=== PATIENT | male | born 1930 | race Caucasian/White ===

== ENCOUNTER 2017-08-20 14:34 | Inpatient (IN) | payer MEDICARE, BC ==
[~2017-08-20] VITALS: Ht 170.2 cm; Wt 69.8 kg
[2017-08-20 14:51] VITALS: BP 183/81; PULSE 62; RESP 18; TEMP 97.4; O2SAT 97
[2017-08-20] MEDS ORDERED: CLON0.1T PO (14:59)
[2017-08-20] MEDS ORDERED: CLOP75TA PO (14:59)
[2017-08-20] MEDS ORDERED: TAMS0.4C4 PO (14:59)
[2017-08-20] MEDS ORDERED: ATOR80TA45 PO (14:59)
[2017-08-20] MEDS ORDERED: ASPI-516 CHEW (14:59)
[2017-08-20] MEDS ORDERED: LEVO25TA4 PO (14:59)
[2017-08-20] MEDS ORDERED: RANO500 PO (14:59)
[2017-08-20] MEDS ORDERED: NAPR500T2 PO (14:59)
--- NOTE | 2017-08-20 15:34 | HHI.HP ---
[facility] Service Family Medicine Primary Care Physician Unknown Admission Diagnosis Diagnoses: International Travel<30 Days: No Contact w/Intl Traveler<30days: No Known Affected Area: No Past Family Social History Allergies: Coded Allergies: No Known Allergies (Unverified , 08/20/17) Physical Exam Vital Signs Vital Signs Date Time Temp Pulse Resp B/P (MAP) Pulse Ox O2 Delivery O2 Flow Rate FiO2 08/20/17 14:51 97.4 62 18 183/81 (115) 97 21 08/20/17 14:49 62 18 Physical Exam GENERAL: This is a well-nourished, well-developed patient, in no apparent distress. SKIN: No rashes, ecchymoses or lesions. Cool and dry. HEAD: Atraumatic. Normocephalic. No temporal or scalp tenderness. EYES: Pupils equal round and reactive. Extraocular motions intact. No scleral icterus. No injection or drainage. ENT: Nose without bleeding, purulent drainage or septal hematoma. Throat without erythema, tonsillar hypertrophy or exudate. Uvula midline. Airway patent. NECK: Trachea midline. No JVD or lymphadenopathy. Supple, nontender, no meningeal signs. CARDIOVASCULAR: Regular rate and rhythm without murmurs, gallops, or rubs. RESPIRATORY: Clear to auscultation. Breath sounds equal bilaterally. No wheezes , rales, or rhonchi. GASTROINTESTINAL: Abdomen soft, non-tender, nondistended. No hepato-splenomegaly , or palpable masses. No guarding. MUSCULOSKELETAL: Extremities without clubbing, cyanosis, or edema. No joint tenderness, effusion, or edema noted. No calf tenderness. Negative Homans sign bilaterally. NEUROLOGICAL: Awake and alert. Cranial nerves II through XII intact. Motor and sensory grossly within normal limits. Five out of 5 muscle strength in all muscle groups. Normal speech. Caprini VTE Risk Assessment Caprini Risk Assessment Model Point Value = 1 Point Value = 2 Point Value = 3 Point Value = 5 Age 41-60 Minor surgery BMI > 25 kg/m2 Swollen legs Varicose veins or History of unexplained or recurrent spontaneous Oral contraceptives or hormone replacement Sepsis (< 1 month) Serious lung disease, including pneumonia (< 1 month) Abnormal pulmonary function Acute myocardial infarction Congestive heart failure (< 1 month) History of inflammatory bowel disease Medical patient at bed rest Age 61-74 Arthroscopic surgery Major open surgery (> 45 min) Laparoscopic surgery (> 45 min) Malignancy Confined to bed (> 72 hours) Immobilizing plaster cast Central venous access Age >= 75 History of VTE Family history of VTE Factor V Leiden Prothrombin [id number] Lupus anticoagulant Anticardiolipin antibodies Elevated serum homocysteine Heparin-induced thrombocytopenia Other congenital or acquired thrombophilia Stroke (< 1 month) Elective arthroplasty Hip, pelvis, or leg fracture Acute spinal cord injury (< 1 month) Prophylaxis Regimen Total Risk Factor Score Risk Level Prophylaxis Regimen 0-1 Low Early ambulation 2 Moderate Order ONE of the following: *Sequential Compression Device (SCD) *Heparin 5000 units SQ BID 3-4 Higher Order ONE of the following medications: *Heparin 5000 units SQ TID *Enoxaparin/Lovenox 40 mg SQ daily (WT < 150 kg, CrCl > 30 mL/min) *Enoxaparin/Lovenox 30 mg SQ daily (WT < 150 kg, CrCl > 10-29 mL/min) *Enoxaparin/Lovenox 30 mg SQ BID (WT < 150 kg, CrCl > 30 mL/min) AND/OR *Sequential Compression Device (SCD) 5 or more Highest Order ONE of the following medications: *Heparin 5000 units SQ TID (Preferred with Epidurals) *Enoxaparin/Lovenox 40 mg SQ daily (WT < 150 kg, CrCl > 30 mL/min) *Enoxaparin/Lovenox 30 mg SQ daily (WT < 150 kg, CrCl > 10-29 mL/min) *Enoxaparin/Lovenox 30 mg SQ BID (WT < 150 kg, CrCl > 30 mL/min) AND *Sequential Compression Device (SCD) Fernie Valle MD R1 Aug 20, 2017 15:34
[2017-08-20] MEDS ORDERED: SODIUM CHLOR 0.9% 1000 ML INJ 1,000 ML IV SCH ×2 (16:30→18:36)
[2017-08-20] MEDS ORDERED: TETANUS/DIPHTHERIA TOXOID ADULT 0.5 ML VIAL IM ONE (16:30)
--- NOTE | 2017-08-20 16:37 | PD ---
HPI Chief Complaint: Altered Mental Status Time Seen by Provider: 16:14 Travel History International Travel<30 days: No Contact w/Intl Traveler<30days: No Traveled to known affect area: No History of Present Illness HPI 87-year-old male complains of syncope. Patient states that he has history of recurrent syncope in the past 2 years. Patient was seen at physician in [place] and workup including cardiac workup was negative. Patient states that he usually has hypotension and then passed out completely. Patient was supposed to have a pacemaker placement however that was canceled. Patient states that he had a syncopal episode again about month ago. Patient states that he has dizziness for the past 3 days at home. Patient states that he fell yesterday and injured his right elbow. Patient states that he has laceration to the right elbow after he fell but no pain to right elbow. Patient son states that patient was sitting at the breakfast table this morning and then became unresponsive. Questionable seizure activity this morning. Patient was out for about 30 minutes. Patient regained consciousness and then became unresponsive again this afternoon. EMS was called. Patient's blood pressure was 72/39. IVs were started. Patient was given normal saline solution 300 cc IV bolus. Blood pressure recheck was 105/40. Patient was transported to the ED for evaluation. Patient denies any headache. Patient denies any visual change. Patient denies any chest pain or shortness of breath. Patient denies abdominal pain. Patient denies any nausea vomiting or diarrhea. Patient denies any focal weakness or numbness of extremity. Patient denies any history of seizure , TIA or CVA. Patient denies history of hypothyroidism, hypertension, hyperlipidemia, BPH. PFSH Past Medical History Hx Anticoagulant Therapy: Yes Cardiac Catheterization: Yes Cardiovascular Problems: Yes High Cholesterol: Yes Genitourinary: Yes (BPH ) Hypertension: Yes Thyroid Disease: Yes (hypo ) Social History Alcohol Use: No Tobacco Use: No Substance Use: No Allergies-Medications (Allergen,Severity, Reaction): Coded Allergies: No Known Allergies (Unverified , 08/20/17) Reported Meds & Prescriptions Reported Meds & Active Scripts Active Reported Levothyroxine (Levothyroxine Sodium) 25 Mcg Tab 25 Mcg PO DAILY Atorvastatin (Atorvastatin Calcium) 80 Mg Tab 80 Mg PO HS Aspirin 81 Mg Chew 81 Mg CHEW DAILY Tamsulosin (Tamsulosin HCl) 0.4 Mg Cap 0.4 Mg PO HS Ranexa ER 12 HR (Ranolazine) 500 Mg Tab 500 Mg PO BID Clonidine (Clonidine HCl) 0.1 Mg Tab 0.05 Mg PO HS Clopidogrel (Clopidogrel Bisulfate) 75 Mg Tab 75 Mg PO DAILY Naproxen 500 Mg Tab 500 Mg PO BID Review of Systems General / Constitutional: No: Fever Eyes: No: Visual changes HENT: No: Headaches Cardiovascular: No: Chest Pain or Discomfort Respiratory: No: Shortness of Breath Gastrointestinal: No: Abdominal Pain Genitourinary: No: Dysuria Musculoskeletal: No: Pain Skin: No Rash Neurologic: Positive: Syncope, No: Weakness Psychiatric: No: Depression Endocrine: No: Polydipsia Hematologic/Lymphatic: No: Easy Bruising Physical Exam Narrative GENERAL: Well-nourished, well-developed patient. SKIN: Focused skin assessment warm/dry. HEAD: Normocephalic. EYES: No scleral icterus. No injection or drainage. NECK: Supple, trachea midline. No JVD or lymphadenopathy. CARDIOVASCULAR: Regular rate and rhythm without murmurs, gallops, or rubs. RESPIRATORY: Breath sounds equal bilaterally. No accessory muscle use. GASTROINTESTINAL: Abdomen soft, non-tender, nondistended. MUSCULOSKELETAL: No cyanosis, or edema. Patient has superficial skin evulsion laceration on the posterior aspect of the right elbow. Laceration measures about 5 cm. BACK: Nontender without obvious deformity. No CVA tenderness. Neurologic exam: Patient's awake and alert oriented 3. No obvious focal neurological deficit. Data Data Last Documented VS Vital Signs Date Time Temp Pulse Resp B/P (MAP) Pulse Ox O2 Delivery O2 Flow Rate FiO2 08/20/17 17:39 (126) 96 Room Air 21 08/20/17 17:34 62 18 08/20/17 14:51 97.4 Orders Orders Electrocardiogram (08/20/17 16:22) Complete Blood Count With Diff (08/20/17 16:22) Comprehensive Metabolic Panel (08/20/17 16:22) Prothrombin Time / Inr (Pt) (08/20/17 16:22) Act Partial Throm Time (Ptt) (08/20/17 16:22) Urinalysis - C+S If Indicated (08/20/17 16:22) Thyroid Stimulating Hormone (08/20/17 16:22) Chest, Single Ap (08/20/17 16:22) Ct Brain W/O Iv Contrast(Rout) (08/20/17 16:22) Iv Access Insert/Monitor (08/20/17 16:22) Ecg Monitoring (08/20/17 16:22) Oximetry (08/20/17 16:22) Tetanus/Diphtheria Tox Adult (Tetanus/Di (08/20/17 16:30) Sodium Chlor 0.9% 1000 Ml Inj (Ns 1000 M (08/20/17 16:30) Labs Laboratory Tests Test 08/20/17 16:30 08/20/17 17:30 White Blood Count 6.2 TH/MM3 Red Blood Count 4.05 MIL/MM3 Hemoglobin 12.8 GM/DL Hematocrit 37.7 % Mean Corpuscular Volume 93.2 FL Mean Corpuscular Hemoglobin 31.7 PG Mean Corpuscular Hemoglobin Concent 34.0 % Red Cell Distribution Width 14.5 % Platelet Count 215 TH/MM3 Mean Platelet Volume 7.5 FL Neutrophils (%) (Auto) 78.7 % Lymphocytes (%) (Auto) 13.8 % Monocytes (%) (Auto) 5.8 % Eosinophils (%) (Auto) 0.7 % Basophils (%) (Auto) 1.0 % Neutrophils # (Auto) 4.9 TH/MM3 Lymphocytes # (Auto) 0.9 TH/MM3 Monocytes # (Auto) 0.4 TH/MM3 Eosinophils # (Auto) 0.0 TH/MM3 Basophils # (Auto) 0.1 TH/MM3 CBC Comment DIFF FINAL Differential Comment Prothrombin Time 11.2 SEC Prothromb Time International Ratio 1.1 RATIO Activated Partial Thromboplast Time 22.6 SEC Blood Urea Nitrogen 37 MG/DL Creatinine 1.55 MG/DL Random Glucose 119 MG/DL Total Protein 6.0 GM/DL Albumin 3.7 GM/DL Calcium Level 8.9 MG/DL Alkaline Phosphatase 68 U/L Aspartate Amino Transf (AST/SGOT) 13 U/L Alanine Aminotransferase (ALT/SGPT) 15 U/L Total Bilirubin 0.7 MG/DL Sodium Level 138 MEQ/L Potassium Level 4.5 MEQ/L Chloride Level 104 MEQ/L Carbon Dioxide Level 25.9 MEQ/L Anion Gap 8 MEQ/L Estimat Glomerular Filtration Rate 42 ML/MIN Thyroid Stimulating Hormone 3rd Gen 2.950 uIU/ML Urine Color YELLOW Urine Turbidity CLEAR Urine pH 7.0 Urine Specific [place] 1.014 Urine Protein TRACE mg/dL Urine Glucose (UA) NEG mg/dL Urine Ketones NEG mg/dL Urine Occult Blood NEG Urine Nitrite NEG Urine Bilirubin NEG Urine Urobilinogen 2.0 MG/DL Urine Leukocyte Esterase NEG Urine WBC LESS THAN 1 /hpf Urine Squamous Epithelial Cells <1 /hpf Urine Mucus FEW /lpf Microscopic Urinalysis Comment CULT NOT INDICATED MDM Medical Decision Making Medical Screen Exam Complete: Yes Emergency Medical Condition: Yes Interpretation(s) Last Impressions Head CT 08/20/171621 Signed Impressions: Service Date/Time: Sunday, August 20, 2017 17:13 - CONCLUSION: 1. 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 MRI may be warranted. 2. No midline shift or mass effect. Julian Cisneros MD Chest X-Ray 08/20/171621 Signed Impressions: Service Date/Time: Sunday, August 20, 2017 16:39 - CONCLUSION: No acute cardiopulmonary disease. Andrea Catherine Jr., MD 1805 p.m. CBC WBC 6.2. Hemoglobin 12.8 hematocrit 37.7. 78 neutrophil. BUN 37. Creatinine 1.55. GFR 42. Glucose 119. UA is negative. Differential Diagnosis Differential diagnosis including vasovagal reaction, hypotension, bradycardia, seizure. Narrative Course 87-year-old male with hypotension and syncope and possible seizure. Markel Gambino MD Aug 20, 2017 16:37
--- NOTE | 2017-08-20 17:04 | RADRPT ---
EXAM DATE/TIME: 08/20/2017 16:39 [facility] COMPARISON: No previous studies available for comparison. INDICATIONS : Syncope, short of breath. MEDICAL HISTORY : Hypertension. SURGICAL HISTORY : None. ENCOUNTER: Initial ACUITY: 1 day PAIN SCORE: 0/10 LOCATION: Bilateral chest FINDINGS: 2 portable frontal views of the chest show the heart to be normal in size and shape. Lungs are clear without infiltrate or effusion. Degenerative and scoliotic spine. CONCLUSION: No acute cardiopulmonary disease. Andrea Catherine Jr., MD on August 20, 2017 at 16:49 Board Certified Radiologist. This report was verified electronically.
[2017-08-20 17:08] LABS: INTERNATIONAL NORMALIZED RATIO 1.1 RATIO; PROTHROMBIN TIME - PATIENT 11.2 SEC (9.8-11.6)
[2017-08-20 17:09] LABS: AUTOMATED NEUTROPHIL # 4.9 TH/MM3 (1.8-7.7); BASOPHIL # 0.1 TH/MM3 (0-0.2); EOSINOPHIL % 0.7 % (0.0-4.0); HEMATOCRIT 37.7 % (39.0-51.0); HEMOGLOBIN 12.8 GM/DL (13.0-17.0); LYMPH % 13.8 % (9.0-44.0); LYMPHOCYTE # 0.9 TH/MM3 (1.0-4.8); MEAN CELL VOLUME 93.2 FL (80.0-100.0); MEAN CORPUSCULAR HEMOGLOBIN 31.7 PG (27.0-34.0); MEAN PLATELET VOLUME 7.5 FL (7.0-11.0); MONO % 5.8 % (0.0-8.0); MONOCYTE # 0.4 TH/MM3 (0-0.9); NEUT % 78.7 % (16.0-70.0); PLATELET COUNT 215 TH/MM3 (150-450); RED BLOOD COUNT 4.05 MIL/MM3 (4.50-5.90); RED CELL DISTRIBUTION WIDTH 14.5 % (11.6-17.2); WHITE BLOOD COUNT 6.2 TH/MM3 (4.0-11.0)
[2017-08-20 17:15] LABS: ALBUMIN 3.7 GM/DL (3.4-5.0); ALT (GPT) 15 U/L (12-78); AST (GOT) 13 U/L (15-37); BICARBONATE 25.9 MEQ/L (21.0-32.0); BLOOD UREA NITROGEN 37 MG/DL (7-18); CALCIUM 8.9 MG/DL (8.5-10.1); CHLORIDE 104 MEQ/L (98-107); CREATININE 1.55 MG/DL (0.60-1.30); GLOMERULAR FILTRATION RATE 42 ML/MIN (>89); GLUCOSE,RANDOM 119 MG/DL (74-106); SODIUM (NA) 138 MEQ/L (136-145)
[2017-08-20 17:26] LABS: ALKALINE PHOSPHATASE 68 U/L (45-117); TOTAL BILIRUBIN ADULT 0.7 MG/DL (0.2-1.0)
--- NOTE | 2017-08-20 17:28 | RADRPT ---
EXAM DATE/TIME: 08/20/2017 17:13 [facility] COMPARISON: No previous studies available for comparison. INDICATIONS : Altered mental status. RADIATION DOSE: 39.49 CTDIvol (mGy) MEDICAL HISTORY : Hypothyroidism. Cardiovascular disease Hypertension. SURGICAL HISTORY : None. ENCOUNTER: Initial ACUITY: 1 day PAIN SCALE: 0/10 LOCATION: cranial TECHNIQUE: Multiple contiguous axial images were obtained of the head. Using automated exposure control and adj ustment of the mA and/or kV according to patient size, radiation dose was kept as low as reasonably a chievable to obtain optimal diagnostic quality images. DICOM format image data is available electro nically for review and comparison. FINDINGS: CEREBRUM: Area of low-density in the left parietal-occipital region likely old infarct. The ventricles are norm al for age. No evidence of midline shift, mass lesion, hemorrhage or acute infarction. No extra-axi al fluid collections are seen. POSTERIOR FOSSA: The cerebellum and brainstem are intact. The 4th ventricle is midline. The cerebellopontine angle i s unremarkable. EXTRACRANIAL: The visualized portion of the orbits is intact. SKULL: The calvaria is intact. No evidence of skull fracture. CONCLUSION: 1. 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 MRI may be warranted. 2. No midline shift or mass effect. Julian Cisneros MD on August 20, 2017 at 17:25 Board Certified Radiologist. This report was verified electronically.
[2017-08-20 17:34] VITALS: BP 196/91; PULSE 62; RESP 18; O2SAT 96
[2017-08-20 17:39] VITALS: O2SAT 96
[2017-08-20 17:52] LABS: BILIRUBIN, URINE NEG (NEG); BLOOD, URINE NEG (NEG); GLUCOSE,URINE NEG (NEG); KETONE, URINE NEG (NEG); MUCUS URINE FEW /lpf (OCC); NITRITE,URINE NEG (NEG); SQUAMOUS EPITHELIAL CELL URINE <1 /hpf (0-5); URINE COLOR YELLOW (YELLW/STRAW); URINE LEUKOCYTE ESTERASE NEG (NEG)
--- NOTE | 2017-08-20 18:44 | HHI.HP ---
[facility] Unknown Admission Diagnosis Diagnoses: Travel History International Travel<30 Days: No Contact w/Intl Traveler <30 Da: No Traveled to Known Affected Are: No Past Family Social History Allergies: Coded Allergies: No Known Allergies (Unverified , 08/20/17) Physical Exam Vital Signs Vital Signs Date Time Temp Pulse Resp B/P (MAP) Pulse Ox O2 Delivery O2 Flow Rate FiO2 08/20/17 17:39 (126) 96 Room Air 21 08/20/17 17:34 62 18 196/91 (126) 96 Room Air 08/20/17 14:51 97.4 62 18 183/81 (115) 97 21 08/20/17 14:49 62 18 Physical Exam GENERAL: This is a well-nourished, well-developed patient, in no apparent distress. SKIN: No rashes, ecchymoses or lesions. Cool and dry. HEAD: Atraumatic. Normocephalic. No temporal or scalp tenderness. EYES: Pupils equal round and reactive. Extraocular motions intact. No scleral icterus. No injection or drainage. ENT: Nose without bleeding, purulent drainage or septal hematoma. Throat without erythema, tonsillar hypertrophy or exudate. Uvula midline. Airway patent. NECK: Trachea midline. No JVD or lymphadenopathy. Supple, nontender, no meningeal signs. CARDIOVASCULAR: Regular rate and rhythm without murmurs, gallops, or rubs. RESPIRATORY: Clear to auscultation. Breath sounds equal bilaterally. No wheezes , rales, or rhonchi. GASTROINTESTINAL: Abdomen soft, non-tender, nondistended. No hepato-splenomegaly , or palpable masses. No guarding. MUSCULOSKELETAL: Extremities without clubbing, cyanosis, or edema. No joint tenderness, effusion, or edema noted. No calf tenderness. Negative Homans sign bilaterally. NEUROLOGICAL: Awake and alert. Cranial nerves II through XII intact. Motor and sensory grossly within normal limits. Five out of 5 muscle strength in all muscle groups. Normal speech. Laboratory Laboratory Tests Test 08/20/17 16:30 08/20/17 17:30 White Blood Count 6.2 Red Blood Count 4.05 Hemoglobin 12.8 Hematocrit 37.7 Mean Corpuscular Volume 93.2 Mean Corpuscular Hemoglobin 31.7 Mean Corpuscular Hemoglobin Concent 34.0 Red Cell Distribution Width 14.5 Platelet Count 215 Mean Platelet Volume 7.5 Neutrophils (%) (Auto) 78.7 Lymphocytes (%) (Auto) 13.8 Monocytes (%) (Auto) 5.8 Eosinophils (%) (Auto) 0.7 Basophils (%) (Auto) 1.0 Neutrophils # (Auto) 4.9 Lymphocytes # (Auto) 0.9 Monocytes # (Auto) 0.4 Eosinophils # (Auto) 0.0 Basophils # (Auto) 0.1 CBC Comment DIFF FINAL Differential Comment Prothrombin Time 11.2 Prothromb Time International Ratio 1.1 Activated Partial Thromboplast Time 22.6 Blood Urea Nitrogen 37 Creatinine 1.55 Random Glucose 119 Total Protein 6.0 Albumin 3.7 Calcium Level 8.9 Alkaline Phosphatase 68 Aspartate Amino Transf (AST/SGOT) 13 Alanine Aminotransferase (ALT/SGPT) 15 Total Bilirubin 0.7 Sodium Level 138 Potassium Level 4.5 Chloride Level 104 Carbon Dioxide Level 25.9 Anion Gap 8 Estimat Glomerular Filtration Rate 42 Thyroid Stimulating Hormone 3rd Gen 2.950 Urine Color YELLOW Urine Turbidity CLEAR Urine pH 7.0 Urine Specific [place] 1.014 Urine Protein TRACE Urine Glucose (UA) NEG Urine Ketones NEG Urine Occult Blood NEG Urine Nitrite NEG Urine Bilirubin NEG Urine Urobilinogen 2.0 Urine Leukocyte Esterase NEG Urine WBC LESS THAN 1 Urine Squamous Epithelial Cells <1 Urine Mucus FEW Microscopic Urinalysis Comment CULT NOT INDICATED Result Diagram: 08/20/17 1630 08/20/17 1630 Caprini VTE Risk Assessment Caprini Risk Assessment Model Point Value = 1 Point Value = 2 Point Value = 3 Point Value = 5 Age 41-60 Minor surgery BMI > 25 kg/m2 Swollen legs Varicose veins or History of unexplained or recurrent spontaneous Oral contraceptives or hormone replacement Sepsis (< 1 month) Serious lung disease, including pneumonia (< 1 month) Abnormal pulmonary function Acute myocardial infarction Congestive heart failure (< 1 month) History of inflammatory bowel disease Medical patient at bed rest Age 61-74 Arthroscopic surgery Major open surgery (> 45 min) Laparoscopic surgery (> 45 min) Malignancy Confined to bed (> 72 hours) Immobilizing plaster cast Central venous access Age >= 75 History of VTE Family history of VTE Factor V Leiden Prothrombin [id number] Lupus anticoagulant Anticardiolipin antibodies Elevated serum homocysteine Heparin-induced thrombocytopenia Other congenital or acquired thrombophilia Stroke (< 1 month) Elective arthroplasty Hip, pelvis, or leg fracture Acute spinal cord injury (< 1 month) Prophylaxis Regimen Total Risk Factor Score Risk Level Prophylaxis Regimen 0-1 Low Early ambulation 2 Moderate Order ONE of the following: *Sequential Compression Device (SCD) *Heparin 5000 units SQ BID 3-4 Higher Order ONE of the following medications: *Heparin 5000 units SQ TID *Enoxaparin/Lovenox 40 mg SQ daily (WT < 150 kg, CrCl > 30 mL/min) *Enoxaparin/Lovenox 30 mg SQ daily (WT < 150 kg, CrCl > 10-29 mL/min) *Enoxaparin/Lovenox 30 mg SQ BID (WT < 150 kg, CrCl > 30 mL/min) AND/OR *Sequential Compression Device (SCD) 5 or more Highest Order ONE of the following medications: *Heparin 5000 units SQ TID (Preferred with Epidurals) *Enoxaparin/Lovenox 40 mg SQ daily (WT < 150 kg, CrCl > 30 mL/min) *Enoxaparin/Lovenox 30 mg SQ daily (WT < 150 kg, CrCl > 10-29 mL/min) *Enoxaparin/Lovenox 30 mg SQ BID (WT < 150 kg, CrCl > 30 mL/min) AND *Sequential Compression Device (SCD) Physician Certification Order for Inpatient Services The services are ordered in accordance with Medicare regulations or non- Medicare payer requirements, as applicable. In the case of services not specified as inpatient-only, they are appropriately provided as inpatient services in accordance with the 2-midnight benchmark. days is the estimated time the patient will need to remain in the hospital, assuming treatment plan goals are met and no additional complications. Carmenza Gerard MD Aug 20, 2017 18:44
[2017-08-20] MEDS ORDERED: SODIUM CHLORIDE 0.9% FLUSH 10 ML FLUSH IV FLUSH PRN (18:45)
[2017-08-20 19:18] VITALS: BP 214/94; PULSE 78; RESP 18; O2SAT 98
--- NOTE | 2017-08-20 19:27 | RADRPT ---
EXAM DATE/TIME: 08/20/2017 18:40 [facility] COMPARISON: No previous studies available for comparison. INDICATIONS : Altered mental status. CVA. MEDICAL HISTORY : Hypothyroidism. Hypertension. SURGICAL HISTORY : Total knee replacement, left. Total knee replacement, right. Bilateral hip replacements. ENCOUNTER: Subsequent ACUITY: 1 day PAIN SCORE: 0/10 LOCATION: head. Please note a normal MRA of the brain does not entirely exclude the possibility of a small aneurysm, nor the possibility of distal intracranial vessel disease. TECHNIQUE: 3D time of flight MRA was performed. Source images, multiplanar STS MIP, and 3D volume MIP reconstru ctions were reviewed. FINDINGS: There is focal occlusion of the left proximal posterior cerebral artery. Patent posterior communicati ng arteries are noted bilaterally. The basilar artery is patent without significant stenosis or occlu [place]. The uppermost portions of the vertebral arteries are also patent without significant stenosis o r occlusion. The upper cervical, features, cavernous and supraclinoid internal carotid arteries are patent without significant stenosis or occlusion. The A1 and M1 segments are patent without significant stenosis or occlusion. The middle and anterior cerebral arteries are patent without significant stenosis or occl usion. No aneurysm formation is noted. 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 Abilio Marin MD on August 20, 2017 at 19:23 Board Certified Radiologist. This report was verified electronically.
--- NOTE | 2017-08-20 19:31 | RADRPT ---
EXAM DATE/TIME: 08/20/2017 18:40 [facility] COMPARISON: No previous studies available for comparison. INDICATIONS : Altered mental status. CVA. MEDICAL HISTORY : Hypothyroidism. Hypertension. SURGICAL HISTORY : Total knee replacement, left. Total knee replacement, right. Bilateral hip replacements. ENCOUNTER: Subsequent ACUITY: 1 day PAIN SCORE: 0/10 LOCATION: head. TECHNIQUE: Multiplanar, multisequence MRI of the brain was performed without contrast. FINDINGS: Tiny foci of hyperintensity are noted within the left basal ganglia and mid periventricular white mat ter on the diffusion weighted images suggestive of probable subacute lacunar infarcts. Encephalomalac ia is noted involving left occipital lobe consistent with probable old infarct in the left posterior cerebral artery distribution. Mild periventricular and subcortical white matter small vessel ischemic changes are noted bilaterally. Mild cerebral atrophy is noted. No acute hemorrhage, midline shift or extra-axial fluid collections are noted. CONCLUSION: 1. Tiny foci of hyperintensity are noted within the left basal ganglia and mid periventricular white matter on the diffusion weighted images suggestive of probable subacute lacunar infarcts. 2. Encephalomalacia involving the left occipital lobe consistent with probable old infarct in the lef t posterior cerebral artery distribution. 3. Mild periventricular and subcortical white matter small vessel ischemic changes bilaterally. 4. Mild cerebral atrophy. 5. No acute hemorrhage, midline shift or extra axial fluid collections. Abilio Marin MD on August 20, 2017 at 19:25 Board Certified Radiologist. This report was verified electronically.
[2017-08-20] MEDS ORDERED: GADODIAMIDE PF 287 MG/ML 20 ML VIAL (for RAD MRI) IVCONTRAST ONE (19:33)
--- NOTE | 2017-08-20 19:38 | RADRPT ---
EXAM DATE/TIME: 08/20/2017 18:40 [place] COMPARISON: No previous studies available for comparison. INDICATIONS : Stenosis. CONTRAST: 20 cc Omniscan (gadodiamide) IV MEDICAL HISTORY : Hypertension. Hypothyroidism. SURGICAL HISTORY : Total knee replacement, left. Total knee replacement, right. Bilateral hip replacements. ENCOUNTER: Subsequent ACUITY: 1 day PAIN SCORE: 0/10 LOCATION: neck. Percent stenosis is calculated using the diameter of the stenotic region over the diameter of the nor mal distal internal carotid artery. TECHNIQUE: Bolus infused MRA of the extracranial circulation was performed using a neurovascular coil. Post pro cessing was performed including rotating subvolume maximum intensity projections of each carotid waqar ry, rotating full volume maximum intensity projections of both carotid arteries, sagittal and coronal sliding thin slab reformations of each carotid artery, and left oblique sliding thin slab reformatio n through the aortic arch to include the origin of the arch branch vessels. FINDINGS: AORTIC ARCH: There is a low volume arch. No evidence of ostial narrowing. RIGHT CAROTID: The common carotid artery is intact. The carotid bulb has a normal configuration without ulceration or narrowing. Minimal stenosis is noted involving the right proximal internal carotid artery. The ext ernal carotid artery is intact. LEFT CAROTID: The common carotid artery is intact. The carotid bulb has a normal configuration without ulceration or narrowing. The internal carotid artery lumen is smooth without stenosis. The external carotid ar obi is intact. VERTEBRALS: The vertebral arteries have a symmetric diameter. No stenotic lesions are seen. CONCLUSION: Minimal stenosis involving the right proximal internal carotid artery. Otherwise unre markable MRA of the carotids. Abilio Marin MD on August 20, 2017 at 19:33 Board Certified Radiologist. This report was verified electronically.
[2017-08-20 19:55] VITALS: BP_SYST 141; BP_SYST 198; BP_DIAS 67; BP_DIAS 87; PULSE 63; PULSE 75; RESP 18; TEMP 97.4; O2SAT 97; O2SAT 98
--- NOTE | 2017-08-20 20:44 | HHI.HP ---
[facility] Unknown Admission Diagnosis Diagnoses: Travel History International Travel<30 Days: No Contact w/Intl Traveler <30 Da: No Traveled to Known Affected Are: No History of Present Illness 87-year-old male with a past medical history significant for CAD, hypertension and osteoarthritis presents to the emergency department for evaluation of multiple syncopal episodes. The patient reports that he has been having "spells " for the past 2-3 years although they have become more frequent. He reports four spells over the past 3 days with the syncopal event today resulting in a fall with a right elbow laceration. Patient states that he feels dizzy and is if his body is moving in a stationary room preceding a blackout for an unspecified amount of time. He endorses loss of consciousness with each of these spells. He denies loss of bowel or bladder following the spells. He denies any significant postictal period. Review of Systems Except as stated in HPI: all other systems reviewed are Neg Past Family Social History Past Medical History Hypertension Coronary artery disease Osteoarthritis Past Surgical History Bilateral hip replacement Bilateral knee replacement Cardiac catheterization with stent 2 in 1999 Reported Medications Reported Meds & Active Scripts Active Reported Levothyroxine (Levothyroxine Sodium) 25 Mcg Tab 25 Mcg PO DAILY Atorvastatin (Atorvastatin Calcium) 80 Mg Tab 80 Mg PO HS Aspirin 81 Mg Chew 81 Mg CHEW DAILY Tamsulosin (Tamsulosin HCl) 0.4 Mg Cap 0.4 Mg PO HS Ranexa ER 12 HR (Ranolazine) 500 Mg Tab 500 Mg PO BID Clonidine (Clonidine HCl) 0.1 Mg Tab 0.05 Mg PO HS Clopidogrel (Clopidogrel Bisulfate) 75 Mg Tab 75 Mg PO DAILY Naproxen 500 Mg Tab 500 Mg PO BID Allergies: Coded Allergies: No Known Allergies (Unverified , 08/20/17) Family History No family history of CAD/DM Social History Denies alcohol, tobacco or illicit drugs Physical Exam Vital Signs Vital Signs Date Time Temp Pulse Resp B/P (MAP) Pulse Ox O2 Delivery O2 Flow Rate FiO2 08/20/17 19:30 1/31/18 19:18 78 18 214/94 (134) 98 Room Air 08/20/17 17:39 (126) 96 Room Air 21 08/20/17 17:34 62 18 196/91 (126) 96 Room Air 08/20/17 14:51 97.4 62 18 183/81 (115) 97 21 08/20/17 14:49 62 18 Physical Exam GENERAL: male lying in bed SKIN: No rashes, ecchymoses or lesions. Cool and dry. Small circular skin tear on left elbow, hemostatic. HEAD: Atraumatic. Normocephalic. No temporal or scalp tenderness. EYES: Pupils equal round and reactive. Extraocular motions intact. No scleral icterus. No injection or drainage. ENT: Nose without bleeding, purulent drainage or septal hematoma. Throat without erythema, tonsillar hypertrophy or exudate. Uvula midline. Airway patent. NECK: Trachea midline. No JVD or lymphadenopathy. Supple, nontender, no meningeal signs. CARDIOVASCULAR: Regular rate and rhythm without murmurs, gallops, or rubs. RESPIRATORY: Clear to auscultation. Breath sounds equal bilaterally. No wheezes , rales, or rhonchi. GASTROINTESTINAL: Abdomen soft, non-tender, nondistended. No hepato-splenomegaly , or palpable masses. No guarding. MUSCULOSKELETAL: Extremities without clubbing, cyanosis, or edema. No joint tenderness, effusion, or edema noted. No calf tenderness. NEUROLOGICAL: Awake and alert. Cranial nerves II through XII intact. Motor and sensory grossly within normal limits. Normal speech. Laboratory Laboratory Tests Test 08/20/17 16:30 08/20/17 17:30 White Blood Count 6.2 Red Blood Count 4.05 Hemoglobin 12.8 Hematocrit 37.7 Mean Corpuscular Volume 93.2 Mean Corpuscular Hemoglobin 31.7 Mean Corpuscular Hemoglobin Concent 34.0 Red Cell Distribution Width 14.5 Platelet Count 215 Mean Platelet Volume 7.5 Neutrophils (%) (Auto) 78.7 Lymphocytes (%) (Auto) 13.8 Monocytes (%) (Auto) 5.8 Eosinophils (%) (Auto) 0.7 Basophils (%) (Auto) 1.0 Neutrophils # (Auto) 4.9 Lymphocytes # (Auto) 0.9 Monocytes # (Auto) 0.4 Eosinophils # (Auto) 0.0 Basophils # (Auto) 0.1 CBC Comment DIFF FINAL Differential Comment Prothrombin Time 11.2 Prothromb Time International Ratio 1.1 Activated Partial Thromboplast Time 22.6 Blood Urea Nitrogen 37 Creatinine 1.55 Random Glucose 119 Total Protein 6.0 Albumin 3.7 Calcium Level 8.9 Alkaline Phosphatase 68 Aspartate Amino Transf (AST/SGOT) 13 Alanine Aminotransferase (ALT/SGPT) 15 Total Bilirubin 0.7 Sodium Level 138 Potassium Level 4.5 Chloride Level 104 Carbon Dioxide Level 25.9 Anion Gap 8 Estimat Glomerular Filtration Rate 42 Thyroid Stimulating Hormone 3rd Gen 2.950 Urine Color YELLOW Urine Turbidity CLEAR Urine pH 7.0 Urine Specific [place] 1.014 Urine Protein TRACE Urine Glucose (UA) NEG Urine Ketones NEG Urine Occult Blood NEG Urine Nitrite NEG Urine Bilirubin NEG Urine Urobilinogen 2.0 Urine Leukocyte Esterase NEG Urine WBC LESS THAN 1 Urine Squamous Epithelial Cells <1 Urine Mucus FEW Microscopic Urinalysis Comment CULT NOT INDICATED Result Diagram: 08/20/17 1630 08/20/17 1630 Caprini VTE Risk Assessment Caprini VTE Risk Assessment: Mod/High Risk (score >= 2) Caprini Risk Assessment Model Point Value = 1 Point Value = 2 Point Value = 3 Point Value = 5 Age 41-60 Minor surgery BMI > 25 kg/m2 Swollen legs Varicose veins or History of unexplained or recurrent spontaneous Oral contraceptives or hormone replacement Sepsis (< 1 month) Serious lung disease, including pneumonia (< 1 month) Abnormal pulmonary function Acute myocardial infarction Congestive heart failure (< 1 month) History of inflammatory bowel disease Medical patient at bed rest Age 61-74 Arthroscopic surgery Major open surgery (> 45 min) Laparoscopic surgery (> 45 min) Malignancy Confined to bed (> 72 hours) Immobilizing plaster cast Central venous access Age >= 75 History of VTE Family history of VTE Factor V Leiden Prothrombin [id number] Lupus anticoagulant Anticardiolipin antibodies Elevated serum homocysteine Heparin-induced thrombocytopenia Other congenital or acquired thrombophilia Stroke (< 1 month) Elective arthroplasty Hip, pelvis, or leg fracture Acute spinal cord injury (< 1 month) Prophylaxis Regimen Total Risk Factor Score Risk Level Prophylaxis Regimen 0-1 Low Early ambulation 2 Moderate Order ONE of the following: *Sequential Compression Device (SCD) *Heparin 5000 units SQ BID 3-4 Higher Order ONE of the following medications: *Heparin 5000 units SQ TID *Enoxaparin/Lovenox 40 mg SQ daily (WT < 150 kg, CrCl > 30 mL/min) *Enoxaparin/Lovenox 30 mg SQ daily (WT < 150 kg, CrCl > 10-29 mL/min) *Enoxaparin/Lovenox 30 mg SQ BID (WT < 150 kg, CrCl > 30 mL/min) AND/OR *Sequential Compression Device (SCD) 5 or more Highest Order ONE of the following medications: *Heparin 5000 units SQ TID (Preferred with Epidurals) *Enoxaparin/Lovenox 40 mg SQ daily (WT < 150 kg, CrCl > 30 mL/min) *Enoxaparin/Lovenox 30 mg SQ daily (WT < 150 kg, CrCl > 10-29 mL/min) *Enoxaparin/Lovenox 30 mg SQ BID (WT < 150 kg, CrCl > 30 mL/min) AND *Sequential Compression Device (SCD) Assessment and Plan Assessment and Plan Assessment/plan: 1. Syncope Unclear etiology; cardiac versus neurologic Brain MRI, head/neck MRA pending EEG pending EKG, Echo, Holter monitor pending Telemetry Cardiology consulted, appreciate recommendations Neurology consulted, appreciate recommendations 2. KARLEE BUN/creatinine 37/1.55 (no baseline for comparison) IV fluid hydration Monitor renal function 3. Hypertension/CAD/hyperlipidemia/BPH Continue home medications Clonidine will be when necessary as patient hypotensive in the emergency department FEN Heart healthy diet NS at 100 cc/hr Electrolytes: monitor and replete prn Heparin Physician Certification 2 Midnight Certification Type: Admission for Inpatient Services Order for Inpatient Services The services are ordered in accordance with Medicare regulations or non- Medicare payer requirements, as applicable. In the case of services not specified as inpatient-only, they are appropriately provided as inpatient services in accordance with the 2-midnight benchmark. Estimated LOS (days): 2 2 days is the estimated time the patient will need to remain in the hospital, assuming treatment plan goals are met and no additional complications. Post-Hospital Plan: Not yet determined Marisel Au MD Aug 20, 2017 20:44
[2017-08-20] MEDS ORDERED: cloNIDine HCL 0.1 MG TAB PO PRN (20:45)
--- NOTE | 2017-08-20 21:13 | EKG ---
Date Performed: 08/20/2017 Time Performed: 18:17:27 PTAGE: 87 years EKG: Sinus rhythm LEFT BUNDLE BRANCH BLOCK ABNORMAL ECG NO PREVIOUS TRACING DOCTOR: Russell Ko Interpretating Date/Time 08/20/2017 21:11:21
[2017-08-20] MEDS: ATORVASTATIN 80 MG TAB PO SCH (22:37)
[2017-08-20] MEDS: TAMSULOSIN HCL 0.4 MG CAP PO SCH (22:38)
[2017-08-20] MEDS: HEPARIN SODIUM - SQ 10,000 UNITS/ML VIAL SQ SCH (22:41)
[2017-08-20] MEDS: SODIUM CHLORIDE 0.9% FLUSH 10 ML FLUSH IV FLUSH SCH (22:41)
[2017-08-20] MEDS: RANOLAZINE 500 MG EXTENDED RELEASE TAB PO SCH (22:46)
[2017-08-20 23:07] VITALS: BP 175/77; PULSE 100; RESP 18; TEMP 98.6; O2SAT 96
[2017-08-21] VITALS (9 sets, daily range): BP systolic 0–213; BP diastolic 54–104; PULSE 59–79; RESP 16–18; TEMP 97.3–98; O2SAT 96–97
[2017-08-21] MEDS: LEVOTHYROXINE SODIUM 25 MCG TAB PO SCH (07:08)
[2017-08-21 07:17] LABS: AUTOMATED NEUTROPHIL # 3.8 TH/MM3 (1.8-7.7); BASOPHIL % 0.5 % (0.0-2.0); EOSINOPHIL # 0.1 TH/MM3 (0-0.4); EOSINOPHIL % 1.6 % (0.0-4.0); HEMATOCRIT 34.4 % (39.0-51.0); HEMOGLOBIN 11.8 GM/DL (13.0-17.0); LYMPH % 17.9 % (9.0-44.0); LYMPHOCYTE # 0.9 TH/MM3 (1.0-4.8); MEAN CELL VOLUME 92.8 FL (80.0-100.0); MEAN CORPUSCULAR HEMOGLOBIN 31.9 PG (27.0-34.0); MEAN CORPUSCULAR HGB CONC 34.3 % (32.0-36.0); MEAN PLATELET VOLUME 7.1 FL (7.0-11.0); MONO % 6.1 % (0.0-8.0); MONOCYTE # 0.3 TH/MM3 (0-0.9); NEUT % 73.9 % (16.0-70.0); PLATELET COUNT 180 TH/MM3 (150-450); RED BLOOD COUNT 3.71 MIL/MM3 (4.50-5.90); RED CELL DISTRIBUTION WIDTH 14.4 % (11.6-17.2); WHITE BLOOD COUNT 5.1 TH/MM3 (4.0-11.0)
[2017-08-21 07:53] LABS: BICARBONATE 26.2 MEQ/L (21.0-32.0); CALCIUM 8.3 MG/DL (8.5-10.1); CREATININE 1.1 MG/DL (0.60-1.30)
[2017-08-21] MEDS: ASPIRIN 81 MG CHEW TAB CHEW SCH (09:39)
[2017-08-21] MEDS: HEPARIN SODIUM - SQ 10,000 UNITS/ML VIAL SQ SCH ×2 (09:39→21:34)
[2017-08-21] MEDS: RANOLAZINE 500 MG EXTENDED RELEASE TAB PO SCH ×2 (09:39→21:34)
[2017-08-21] MEDS: CLOPIDOGREL 75 MG TAB PO SCH (09:40)
[2017-08-21] MEDS: SODIUM CHLORIDE 0.9% FLUSH 10 ML FLUSH IV FLUSH SCH ×2 (09:40→21:37)
--- NOTE | 2017-08-21 15:23 | HHI.PR ---
Subjective Remarks Patient seen this morning around 10 AM. Reports generalized weakness. Denies any chest pain or shortness of breath. He does say that weakness is somewhat worse on his right side. Overall he feels stronger today. Objective Vital Signs Date Time Temp Pulse Resp B/P (MAP) Pulse Ox O2 Delivery O2 Flow Rate FiO2 08/21/17 12:00 97.6 59 18 163/78 (106) 97 08/21/17 08:00 97.7 68 16 175/85 (115) 96 08/21/17 08:00 64 08/21/17 05:47 62 08/21/17 04:05 97.4 66 18 164/77 (106) 97 08/20/17 23:07 98.6 100 18 175/77 (109) 96 08/20/17 19:55 97.4 63 18 141/67 (91) 97 08/20/17 19:30 08/20/17 19:18 78 18 214/94 (134) 98 Room Air 08/20/17 17:39 (126) 96 Room Air 21 08/20/17 17:34 62 18 196/91 (126) 96 Room Air I/O 08/20/17 08/20/17 08/20/17 08/21/17 08/21/17 08/21/17 07:00 15:00 23:00 07:00 15:00 23:00 Intake Total 200 ml 897 ml Output Total 850 ml Balance -650 ml 897 ml Intake Oral 200 ml IV Total 897 ml Output Urine Total 850 ml # Voids 2 # Bowel Movements 1 Result Diagram: 08/21/17 0600 08/21/17 0600 Objective Remarks GENERAL: Patient sitting up in bed. Eating. No acute distress. SKIN: Warm and dry. HEAD: Normocephalic. EYES: No scleral icterus. No injection or drainage. NECK: Supple, trachea midline. No JVD- CARDIOVASCULAR: Regular rate and rhythm without murmurs, gallops, or rubs. RESPIRATORY: Breath sounds equal bilaterally. No accessory muscle use. GASTROINTESTINAL: Abdomen soft, non-tender, nondistended. MUSCULOSKELETAL: No cyanosis, or edema. BACK: Nontender without obvious deformity. No CVA tenderness. 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 Chronic changes. Neurology following. Appreciate assistance. Echocardiogram, EEG pending. Follow-up results. Continue aspirin and Plavix. //KARLEE BUN/creatinine 37/1.55 (no baseline for comparison) IV fluid hydration Monitor renal function = Creatinine improved 1.1 today. Continue to monitor. IV fluids. // Hypertension/CAD/hyperlipidemia/BPH Continue home medications Clonidine will be when necessary as patient hypotensive in the emergency department = Permissive hypertension due to above. Discharge Planning Pending neurology clearance. Physical therapy and occupational therapy consulted. Oscar Whalen MD Aug 21, 2017 15:23
[2017-08-21 16:01] LABS: CHOLESTEROL/ HDL RATIO 2.83 RATIO; HDL CHOLESTEROL 55.3 MG/DL (40.0-60.0)
[2017-08-21] MEDS: hydrALAZINE HCL 20 MG/ML VIAL IV PUSH PRN ×2 (16:21→23:04)
--- NOTE | 2017-08-21 17:17 | MB ---
cc: ALICIA SHAH MD DATE OF CONSULTATION 08/21/17 DATE OF 1930 REASON FOR CONSULTATION Syncope versus seizure. HISTORY OF PRESENT ILLNESS Patient is an 87-year-old man visiting from the [place] with a history of syncope that he has been having off and on for the last couple of years where he feels like he is getting very weak. He was seen by his doctor and had a workup in [place], apparently unremarkable. He remained on a baby aspirin and Plavix. They thought initially he was passing out because of being hypotensive. Apparently, he told me that he was supposed to have a pacemaker placed, but that was cancelled for unknown reason. Apparently, he has been dizzy for the last few days. He fell yesterday and injured his right arm, elbow. He was at the breakfast table when he became somewhat confused, some shaking. He stood up and then became unresponsive, regained consciousness. Blood pressure was 70/39, per chart. He was placed on IV fluids. Currently, he feels near baseline. PAST MEDICAL HISTORY 1. History of heart disease, 2. Hypertension, 3. Osteoarthritis, 4. Benign prostatic hypertrophy 5. Hypothyroidism. SOCIAL HISTORY Does not drink, smoke or use drugs. ALLERGIES None reported MEDICATIONS Home are 1. Synthroid 2. Atorvastatin 3. Baby aspirin 4. Tamsulosin 5. Ranexa 6. Clonidine 7. Clopidigrel 8. Naproxen. He states the clonidine is not daily. PHYSICAL EXAMINATION VITAL SIGNS: Temperature is 97.6, pulse 59, respiratory rate 18, blood pressure 163/78. His initial blood pressure was 183/81 yesterday afternoon NECK: Supple. I do not appreciate any bruits. HEART: Regular. LUNGS: Clear. He is awake, alert. He is fluent. His pupils reactive. Visual fink are full. His face is symmetrical. His tongue is midline. Motor martin, he does not exhibit any drift or significant leg lag. Strength and anatomy and physiology instructor are intact. Toes withdraws. DTRs are 1+. Cerebellar is normal. Gait is withheld. LABORATORY DATA Reviewed. BUN of 28, creatinine 1.10 - that is improved, GFR 63, calcium 8.3. TSH 2.950. Coag panel - PTT 22.6. CBC - hemoglobin 11.8. Urine - culture was not indicated. IMAGING STUDIES Brain MRI shows a small focus of infarct, likely subacute, in the left basal ganglia suggesting subacute lacune. There is also an old stroke over the left occipital lobe, left MARGIN ANALYST distribution. There is atrophy. There is what looks like another small infarct over the left white matter, again subacute in nature. MRA [place] of [place] shows focal occlusion left proximal posterior cerebral artery. Neck MRA shows minimal stenosis right proximal ICA. IMPRESSION 1. 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 2. Syncope versus seizure. 3. Questionable cardiac dysrhythmia. RECOMMENDATIONS Recommend getting an EEG. His EKG shows left bundle branch block. Echo and Holter are on order. Continue his aspirin and Plavix for the interim, however, concerning issue would be if he is having these events should we consider anticoagulation. I discussed possible Warfarin with him. He is not very happy about having that drug on board, but certainly if indicated it should be considered. Continue hydration watching blood pressures. Also, I will check orthostatics, watch for any seizures, seizure precautions. EEG is already on order. Depending on findings, further recommendations. Cardiology recommendations are also pending. MD ESTER Rocha/ /2:10 PM /4:47 PM
[2017-08-21] MEDS: ATORVASTATIN 80 MG TAB PO SCH (21:34)
[2017-08-21] MEDS: TAMSULOSIN HCL 0.4 MG CAP PO SCH (21:34)
[2017-08-22] VITALS (14 sets, daily range): BP systolic 70–157; BP diastolic 51–82; PULSE 63–94; RESP 18–19; TEMP 97.5–98.2; O2SAT 95–100
--- NOTE | 2017-08-22 05:35 | MG ---
cc: SERAFIN TATUM MD Lab No: [id number] Date: 07/21/2017 Age: 87 Sex: M Race: DATE OF 1930 INDICATIONS An 87-year-old with history of recurrent syncope. FINDINGS 5-6 Hz posterior rhythm, 20-40 microvolts. High-frequency myogenic artifact in the frontal channels, followed by further slowing and generalized 1-3 Hz delta suggestive of drowsy state and Stage I sleep. Reasonable driving with photic stimulation on lower frequency settings. Single lead EKG showing sinus rhythm. INTERPRETATION Mild encephalopathy in sleep state. Clinical correlation. Serafin Tatum MD MG/SSB /9:24 PM /5:20 AM
[2017-08-22] MEDS: LEVOTHYROXINE SODIUM 25 MCG TAB PO SCH (06:00)
--- NOTE | 2017-08-22 07:35 | MB ---
cc: TRACE CHAN DO DATE OF CONSULTATION August 21, 2017 REASON FOR CONSULTATION Syncope. HISTORY OF PRESENT ILLNESS Jefry Nolen is a pleasant 87-year-old male who presented to [facility] due to a syncopal episode. He is down visiting his son and has had been having "spells" for the past [id number] years, although they had been becoming more frequent. He was evaluated by a embedded systems engineer in [place] and there was a question on if he needed a pacemaker. His son and the patient are unable to relate exactly why he would need a pacemaker but they state that at the time they said that pacemaker was not needed. Apparently the patient has had four of these episodes over the past three days with a syncopal episode resulting in the patient falling resulting with a right elbow laceration. The patient states that he feels dizzy and the patient essentially blacks out for an unspecified amount of time. The patient is unable to fully explain exactly what happens during these. He denies loss of bowel or bladder during the episodes. Apparently the patient has no postictal period after this. He denies chest pain, shortness of breath or palpitations with the episodes. PAST MEDICAL HISTORY 1. Hypertension. 2. Coronary artery disease. 3. Osteoarthritis. PAST SURGICAL HISTORY 1. Bilateral hip replacement. 2. Bilateral knee replacement. 3. Previous cardiac catheterization with two stents (1999). ALLERGIES No known drug allergies. MEDICATIONS 1. Flomax 0.4 mg every night. 2. Plavix 75 mg daily. 3. Ranexa 500 mg b.i.d. 4. Lipitor 80 mg every night. 5. Clonidine 0.05 mg every night. 6. Aspirin 81 mg daily. 7. Naproxen 500 mg b.i.d. 8. Synthroid 25 mcg daily. FAMILY HISTORY Denies premature coronary artery disease or sudden cardiac within the family. SOCIAL HISTORY Denies tobacco, alcohol or illicit drug abuse. REVIEW OF SYSTEMS 14-systems were reviewed with the pertinent positives above. PHYSICAL EXAMINATION VITAL SIGNS: Temperature 97.6, heart rate 60, blood pressure 163/78, respirations 18, pulse ox 97% on room air. IN GENERAL: The patient appears well, in no acute distress, alert, awake and oriented x3. Extraocular muscles intact. Mucous membranes moist. NECK: Supple. No JVD at 45 degrees. No carotid bruits heard bilaterally. Carotid upstroke is brisk in nature. HEART: Regular rate and rhythm. Positive first and second heart sounds with a 1/6 crescendo-decrescendo murmur to the right sternal border. LUNGS: Clear to auscultation bilaterally. No wheezes, rales or rhonchi. ABDOMEN: Soft, nontender, nondistended. No organomegaly noted. EXTREMITIES: No clubbing, cyanosis or edema. Femoral and distal pulses intact bilaterally. NEUROLOGICALLY: No focal deficits. SKIN: Warm, dry and intact. OSTEOPATHIC: No kyphoscoliosis, scoliosis, lordosis or paraspinal tender points. LABORATORY FINDINGS Hemoglobin 11.8, hematocrit 34.4, platelets 180. Potassium 4.0, BUN 28, creatinine 1.1. TSH 2.95. ELECTROCARDIOGRAM Sinus rhythm, left bundle branch block. IMPRESSION 1. Syncopal episode of unknown cause. 2. Dehydration. 3. Acute kidney injury. 4. Hypertension. 5. Coronary artery disease. 6. Hyperlipidemia. 7. BPH. RECOMMENDATIONS 1. Mr. Nolen presented with syncopal episode of unknown cause. Apparently he has had multiple episodes recently. 1. His as well as the patient are unsure why he was evaluated for possible pacemaker but states that at the time it was not necessary that it be placed. Apparently when he has had these episodes before they believe that he is hypotensive but not anything was mentioned about bradycardia or AV tremayne blocks. 2. We will check a 2-D echo to look at his overall left ventricular function, cardiac structure and possible valvopathies. 3. He is on multiple medications that may cause orthostatic hypotension but episodes apparently do not always associate with changes in position. He was also dehydrated which may also be a cause for this. 4. Agree with evaluation per Neurology as he was noted to have a focal occlusion of the left proximal posterior cerebral artery. 5. We will obtain an Holter monitor while here in the hospital to rule out significant arrhythmias, bradycardia or AV tremayne block. If no cause is found, the patient should most likely undergo an event recorder or loop recorder. Depending on how long he plans on being down here, this may need to be done back in [place]. 6. Further recommendations will be made based on the hospital course. Thank you for allowing me to see Jefry Nolen. If there are any questions, please do not hesitate to call. Trace GUERRIER/JOSE RAUL /11:55 PM /7:17 AM
[2017-08-22] MEDS: ASPIRIN 81 MG CHEW TAB CHEW SCH (09:52)
[2017-08-22] MEDS: CLOPIDOGREL 75 MG TAB PO SCH (09:52)
[2017-08-22] MEDS: SODIUM CHLORIDE 0.9% FLUSH 10 ML FLUSH IV FLUSH SCH ×2 (09:52→21:09)
[2017-08-22] MEDS: RANOLAZINE 500 MG EXTENDED RELEASE TAB PO SCH ×2 (09:52→20:56)
[2017-08-22] MEDS: HEPARIN SODIUM - SQ 10,000 UNITS/ML VIAL SQ SCH ×2 (09:54→20:56)
--- NOTE | 2017-08-22 12:25 | ECHRPT ---
Indication: syncope CONCLUSIONS Normal left ventricular size and wall thickness. The left ventricular systolic function is normal wi th an estimated ejection fraction of 60%. No definite wall motion abnormalities. Structurally normal mitral valve. Trace mitral valve regurgitation. Structurally normal tricuspid valve There is mild tricuspid valve regurgitation. Possible mild aortic sclerosis. BP: / HR: Rhythm: MEASUREMENTS (Male / Female) Normal Values Technical Quality:Fair, Technically difficult stud y 2D ECHO LV Diastolic Diameter PLAX 3.5 cm 4.2 - 5.9 / 3.9 - 5.3 cm LV Systolic Diameter PLAX 2.9 cm IVS Diastolic Thickness 1.0 cm 0.6 - 1.0 / 0.6 - 0.9 cm LVPW Diastolic Thickness 1.2 cm 0.6 - 1.0 / 0.6 - 0.9 cm LV Relative Wall Thickness 0.6 RV Internal Dim ED PLAX 2.1 cm M-MODE Aortic Root Diameter MM 3.6 cm LA Systolic Diameter MM 2.9 cm LA Ao Ratio MM 0.8 AV Cusp Separation MM 2.1 cm FINDINGS LEFT VENTRICLE Normal left ventricular size and wall thickness. The left ventricular systolic function is normal wi th an estimated ejection fraction of 60%. No definite wall motion abnormalities. RIGHT VENTRICLE Normal right ventricular size and systolic function. LEFT ATRIUM The left atrial size is normal. RIGHT ATRIUM The right atrial size is normal. ATRIAL SEPTUM Normal atrial septal thickness without atrial level shunting by limited color doppler interrogation. AORTA The aortic root and proximal ascending aorta are normal in size on limited imaging. MITRAL VALVE Structurally normal mitral valve. Trace mitral valve regurgitation. AORTIC VALVE Trileaflet aortic valve. Possible mild aortic sclerosis. No aortic valve stenosis or regurgitation . TRICUSPID VALVE Structurally normal tricuspid valve There is mild tricuspid valve regurgitation. PULMONARY VALVE The pulmonary valve is not well visualized. VESSELS The inferior vena cava is normal in size. PERICARDIUM No pericardial effusion. Manish Cruz MD (Electronically Signed) Final Date:22 August 2017 12:24
--- NOTE | 2017-08-22 12:59 | PD.CARD.PN ---
Subjective Subjective Remarks No events overnight Does have some lightheadedness with standing Objective Medications Current Medications Medications (Trade) Dose Ordered Sig/Mary Route Start Time Stop Time Status Last Admin (NS Flush) 2 ml UNSCH PRN IV FLUSH 08/20/17 18:45 (NS Flush) 2 ml BID IV FLUSH 08/20/17 21:00 08/22/17 09:52 (Aspirin Chew) 81 mg DAILY CHEW 08/21/17 09:00 08/22/17 09:52 (Lipitor) 80 mg HS PO 08/20/17 21:00 08/21/17 21:34 (Plavix) 75 mg DAILY PO 08/21/17 09:00 08/22/17 09:52 (Synthroid) 25 mcg DAILY@0600 PO 08/21/17 06:00 08/22/17 06:00 (Ranexa) 500 mg BID PO 08/20/17 21:00 08/22/17 09:52 (Apresoline Inj) 10 mg Q6H PRN IV PUSH 08/20/17 18:45 08/21/17 23:04 (Heparin Inj) 5,000 units Q12HR SQ 08/20/17 21:00 08/22/17 09:54 Vital Signs / I&O Vital Signs Date Time Temp Pulse Resp B/P (MAP) Pulse Ox O2 Delivery O2 Flow Rate FiO2 08/22/17 09:40 70/58 (62) 08/22/17 09:40 80 101/56 (71) 08/22/17 08:00 97.5 82 19 157/74 (101) 95 123/55 (77) 93/51 (65) 08/22/17 07:59 80 08/22/17 04:22 97.9 81 18 138/66 (90) 95 08/22/17 04:00 78 08/22/17 01:48 100 08/22/17 01:30 98.2 72 18 122/82 (95) 97 08/22/17 00:45 136/78 (97) Manual Cuff/Palpation Automatic Cuff 08/22/17 00:00 75 08/21/17 23:44 97.3 76 18 0/ 96 100/54 (69) 08/21/17 21:35 97.5 79 18 213/104 (140) 97 206/102 (136) 08/21/17 20:15 66 08/21/17 19:15 184/88 (120) 08/21/17 16:00 98.0 68 18 208/96 (133) 96 08/21/17 16:00 69 I/O 08/21/17 08/21/17 08/21/17 08/22/17 08/22/17 08/22/17 07:00 15:00 23:00 07:00 15:00 23:00 Intake Total 200 ml 897 ml 480 ml Output Total 850 ml 400 ml Balance -650 ml 897 ml 80 ml Intake Oral 200 ml 480 ml IV Total 897 ml Output Urine Total 850 ml 400 ml # Voids 2 # Bowel Movements 1 0 Physical Exam GENERAL: NAD, AAOx3 SKIN: Warm and dry. HEAD: Atraumatic. Normocephalic. EYES: Pupils equal and round. No scleral icterus. No injection or drainage. ENT: No nasal bleeding or discharge. Mucous membranes pink and moist. NECK: Trachea midline. No JVD. CARDIOVASCULAR: Regular rate and rhythm. / crescendo-decrescendo to the RSB RESPIRATORY: No accessory muscle use. Clear to auscultation. Breath sounds equal bilaterally. GASTROINTESTINAL: Abdomen soft, non-tender, nondistended. Hepatic and splenic margins not palpable. MUSCULOSKELETAL: Extremities without clubbing, cyanosis, or edema. No obvious deformities. NEUROLOGICAL: Awake and alert. No obvious cranial nerve deficits. Motor grossly within normal limits. Five out of 5 muscle strength in the arms and legs. Normal speech. PSYCHIATRIC: Appropriate mood and affect; insight and judgment normal. 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
--- NOTE | 2017-08-22 14:03 | HHI.PR ---
Subjective Remarks Patient with fall last night. Injuring distal right wrist with small skin tear. He says he feels lightheaded with standing, same as before. Denies any chest pain or shortness of breath. Denies any nausea or vomiting. Patient denies any difficulty urinating. Objective Vital Signs Date Time Temp Pulse Resp B/P (MAP) Pulse Ox O2 Delivery O2 Flow Rate FiO2 08/22/17 12:00 97.5 94 19 133/60 (84) 95 08/22/17 09:40 70/58 (62) 08/22/17 09:40 80 101/56 (71) 08/22/17 08:00 97.5 82 19 157/74 (101) 95 123/55 (77) 93/51 (65) 08/22/17 07:59 80 08/22/17 04:22 97.9 81 18 138/66 (90) 95 08/22/17 04:00 78 08/22/17 01:48 100 08/22/17 01:30 98.2 72 18 122/82 (95) 97 08/22/17 00:45 136/78 (97) Manual Cuff/Palpation Automatic Cuff 08/22/17 00:00 75 08/21/17 23:44 97.3 76 18 0/ 96 100/54 (69) 08/21/17 21:35 97.5 79 18 213/104 (140) 97 206/102 (136) 08/21/17 20:15 66 08/21/17 19:15 184/88 (120) 08/21/17 16:00 98.0 68 18 208/96 (133) 96 08/21/17 16:00 69 I/O 08/21/17 08/21/17 08/21/17 08/22/17 08/22/17 08/22/17 07:00 15:00 23:00 07:00 15:00 23:00 Intake Total 200 ml 897 ml 480 ml Output Total 850 ml 400 ml Balance -650 ml 897 ml 80 ml Intake Oral 200 ml 480 ml IV Total 897 ml Output Urine Total 850 ml 400 ml # Voids 2 # Bowel Movements 1 0 Result Diagram: 08/21/17 0600 08/21/17 0600 Objective Remarks GENERAL: Patient sitting up in bed. No acute distress. SKIN: Warm and dry. HEAD: Normocephalic. EYES: No scleral icterus. No injection or drainage. NECK: Supple, trachea midline. No JVD- CARDIOVASCULAR: Regular rate and rhythm without murmurs, gallops, or rubs. RESPIRATORY: Breath sounds equal bilaterally. No accessory muscle use. GASTROINTESTINAL: Abdomen soft, non-tender, nondistended. MUSCULOSKELETAL: No cyanosis, or edema. BACK: Nontender without obvious deformity. No CVA tenderness. A/P Assessment and Plan 2/2 Discussed with nursing. Systolic blood pressures down the 70s with standing. Improved in bed. We'll discontinue patient's Flomax in hopes of of improved blood pressures.. Order FLORIAN hose before standing. 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 Chronic changes. Neurology following. Appreciate assistance. Echocardiogram, EEG pending. Follow-up results. Continue aspirin and Plavix. = 2/2. Echo with normal ejection fraction, mild valvulopathy. Marketed orthostatic blood pressures. Follow-up PT recommendations. Continue Flomax. Follow-up Holter. //KARLEE BUN/creatinine 37/1.55 (no baseline for comparison) IV fluid hydration Monitor renal function = Creatinine improved 1.1 today. Continue to monitor. IV fluids. = 2/2. Repeat labs pending. //Right arm laceration. Nonstick dressing. No signs of infection. Wound care consulted. // Hypertension/CAD/hyperlipidemia/BPH Continue home medications Clonidine will be when necessary as patient hypotensive in the emergency department = Permissive hypertension due to above. = 2/2. Discontinue Flomax. Discharge Planning NEURO cleareed for PT/rehab Still marked orthostatic hypotension, fall last night. holter pending. -waiting for better bp off of flomax Physical therapy and occupational therapy consulted. Oscar Whalen MD Aug 22, 2017 14:03
[2017-08-22] MEDS ORDERED: SODIUM CHLORID 0.9% 500 ML INJ 500 ML IV ONE (14:15)
--- NOTE | 2017-08-22 15:00 | HM ---
Date Performed: 08/20/2017 Time Performed: 21:38:00 HOOKUP DATE: 08/20/17 09:38:00 PM Wed ANALYSIS START TIME: 08/20/2017 9:43:00 PM ANALYSIS END TIME: 08/21/2017 8:56:54 PM PATIENT AGE: 87 PATIENT HEIGHT PATIENT WEIGHT DRUG LIST PATIENT DIAGNOSIS: AMS TEST NARRATIVE: The patient's average heart rate was 70 BPM. No episodes of tachycardia wer e noted. No episodes of bradycardia were noted. No pauses exceeding 2.0 seconds were noted. 166 ventricular ectopics, which represented < 1% of the total beat count, were noted. The highest ve ntricular ectopic frequency occurred from 07:00 AM to 08:00 AM Kimberly. During this time 24 VE(s) occurr ed. Ventricular ectopics were observed as 164 isolated beat(s) and as 1 couplet(s). No runs were no tanvir. Some of the ventricular beats occurred in bigeminal cycles. 13 supraventricular ectopics, w hich represented < 1% of the total beat count, were noted. The highest supraventricular ectopic freq uency occurred from 11:00 AM to 12:00 PM Kimberly. During this time 8 SVE(s) occurred. No episodes of ST depression (defined as -1.0 mm or more) were noted in channel 1. No episodes of ST depression (d efined as -1.0 mm or more) were noted in channel 2. No episodes of ST depression (defined as -1.0 mm or more) were noted in channel 3. NO DIARY GIVEN TO PATIENT TEST INTERPRETATION: Patient was in Sinus rhythm with an intraventricular conduction delay throughout the recording. The average heart rate is 70, mi nimum heart rate is 53, and the peaked heart rate is 89 bpm. There were occassional frequent prematu re beats with 164 ventricular premature beats seen. Wide ventricular complex, four bigeminal cycles. There are rare atrial premature beats with only 13 seen throughout the recording. There are no pause s noted. There was no diary to review. Conclusions: Sinus rhythm throughout the recording. There is e ctopy as described above. There is an intraventricular conduction delay seen throughout the recording . Signed by : Lewis Restrepo
--- NOTE | 2017-08-22 17:11 | PD.WCN.NOT ---
Wound Consult Description: Wound consult ordered by for right arm laceration Communicated with: Toan COOL [address] [place] [address], Recommendation: 1) Provide skin hydration/moisturizing BID 2) Leave current Dressings in place x7 days remove 09/03 3) If dressing has strike threw can change outer/secondary dressing. 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.Patient alert and oriented in bed with no current complaints.Dressings removed from right upper extremity to reveal 2 skin tears with scattered hematomas to surrounding areas.Wounds cleansed with normal saline and pat dry.Skin tear to Right wrist well approximated no drainage or odor noted measures ~0.8 x ~0.4.Right forearm skin tear measures ~5.0cm x~5.0cm scant bloody drainage with no odor skin reapproximated Versatel applied over wound and covered with dry dressing secured with rolled gauze sign and dated.Right wrist skin prepped and cover with absorbant Tegaderm.Both dressing can remain in place up to 7 days Yarelis Arreguin [facility] Aug 22, 2017 17:11
[2017-08-22 19:14] LABS: AUTOMATED NEUTROPHIL # 6.9 TH/MM3 (1.8-7.7); BASOPHIL % 0.5 % (0.0-2.0); EOSINOPHIL # 0.1 TH/MM3 (0-0.4); EOSINOPHIL % 0.8 % (0.0-4.0); HEMATOCRIT 35.2 % (39.0-51.0); LYMPH % 10.4 % (9.0-44.0); LYMPHOCYTE # 0.9 TH/MM3 (1.0-4.8); MEAN CELL VOLUME 93.3 FL (80.0-100.0); MEAN CORPUSCULAR HEMOGLOBIN 31.9 PG (27.0-34.0); MEAN CORPUSCULAR HGB CONC 34.1 % (32.0-36.0); MEAN PLATELET VOLUME 7.2 FL (7.0-11.0); MONO % 7.8 % (0.0-8.0); MONOCYTE # 0.7 TH/MM3 (0-0.9); NEUT % 80.5 % (16.0-70.0); PLATELET COUNT 218 TH/MM3 (150-450); RED BLOOD COUNT 3.77 MIL/MM3 (4.50-5.90); RED CELL DISTRIBUTION WIDTH 14.3 % (11.6-17.2); WHITE BLOOD COUNT 8.5 TH/MM3 (4.0-11.0)
[2017-08-22 19:33] LABS: BICARBONATE 25.9 MEQ/L (21.0-32.0); CALCIUM 8.8 MG/DL (8.5-10.1); CREATININE 1.39 MG/DL (0.60-1.30)
[2017-08-22] MEDS: ATORVASTATIN 80 MG TAB PO SCH (21:09)
[2017-08-23] VITALS (11 sets, daily range): BP systolic 113–186; BP diastolic 64–85; PULSE 70–82; RESP 18–19; TEMP 97.7–98.4; O2SAT 93–99
[2017-08-23] MEDS: LEVOTHYROXINE SODIUM 25 MCG TAB PO SCH (06:18)
[2017-08-23] MEDS: ASPIRIN 81 MG CHEW TAB CHEW SCH (08:48)
[2017-08-23] MEDS: SODIUM CHLORIDE 0.9% FLUSH 10 ML FLUSH IV FLUSH SCH ×2 (08:48→21:00)
[2017-08-23] MEDS: HEPARIN SODIUM - SQ 10,000 UNITS/ML VIAL SQ SCH (08:49)
[2017-08-23] MEDS: CLOPIDOGREL 75 MG TAB PO SCH (08:49)
[2017-08-23] MEDS: RANOLAZINE 500 MG EXTENDED RELEASE TAB PO SCH ×2 (08:49→21:02)
[2017-08-23 09:46] LABS: ALBUMIN 3.5 GM/DL (3.4-5.0); CALCIUM 9.2 MG/DL (8.5-10.1); CREATININE 1.12 MG/DL (0.60-1.30); MAGNESIUM 1.9 MG/DL (1.5-2.5)
[2017-08-23 09:47] LABS: BASOPHIL % 0.5 % (0.0-2.0); EOSINOPHIL # 0.1 TH/MM3 (0-0.4); EOSINOPHIL % 0.9 % (0.0-4.0); HEMATOCRIT 37.2 % (39.0-51.0); HEMOGLOBIN 12.8 GM/DL (13.0-17.0); LYMPH % 7.6 % (9.0-44.0); LYMPHOCYTE # 0.6 TH/MM3 (1.0-4.8); MEAN CELL VOLUME 93.1 FL (80.0-100.0); MEAN CORPUSCULAR HEMOGLOBIN 32.1 PG (27.0-34.0); MEAN CORPUSCULAR HGB CONC 34.4 % (32.0-36.0); MEAN PLATELET VOLUME 7.3 FL (7.0-11.0); MONO % 7.6 % (0.0-8.0); MONOCYTE # 0.6 TH/MM3 (0-0.9); NEUT % 83.4 % (16.0-70.0); PLATELET COUNT 196 TH/MM3 (150-450); RED BLOOD COUNT 3.99 MIL/MM3 (4.50-5.90); RED CELL DISTRIBUTION WIDTH 14.3 % (11.6-17.2); WHITE BLOOD COUNT 8.4 TH/MM3 (4.0-11.0)
[2017-08-23] MEDS ORDERED: SODIUM CHLOR 0.9% 1000 ML INJ 1,000 ML IV ONE (11:15)
[2017-08-23] MEDS ORDERED: CYANOCOBALAMIN 100 MCG TAB PO ONE (12:45)
[2017-08-23] MEDS ORDERED: THIAMINE HCL 100 MG TAB PO ONE (12:45)
--- NOTE | 2017-08-23 12:47 | HHI.PR ---
Subjective Remarks Patient says he is not feeling so well today. Was lightheaded when he was standing. Reports feeling all right lying down discussed with nursing. Systolic blood pressures 113 this morning. Patient denies any difficulty urinating Objective Vital Signs Date Time Temp Pulse Resp B/P (MAP) Pulse Ox O2 Delivery O2 Flow Rate FiO2 08/23/17 11:50 Room Air 08/23/17 10:16 70 08/23/17 08:50 Room Air 08/23/17 08:30 98.2 80 19 113/64 (80) 97 08/23/17 04:03 97.8 80 18 155/71 (99) 93 08/23/17 04:00 80 08/23/17 00:00 70 08/23/17 00:00 97.7 72 18 154/70 (98) 93 08/22/17 20:00 73 08/22/17 20:00 80 08/22/17 19:45 98.0 69 18 124/58 (80) 99 08/22/17 16:01 63 08/22/17 16:00 97.5 69 19 120/58 (78) 98 I/O 08/22/17 08/22/17 08/22/17 08/23/17 08/23/17 08/23/17 07:00 15:00 23:00 07:00 15:00 23:00 Intake Total 480 ml 960 ml 480 ml Output Total 400 ml 850 ml 1125 ml Balance 80 ml 110 ml -645 ml Intake Oral 480 ml 960 ml 480 ml Output Urine Total 400 ml 850 ml 1125 ml # Voids 2 # Bowel Movements 0 2 1 Result Diagram: 08/23/17 0808 08/23/17 0808 Objective Remarks GENERAL: Patient sitting up in bed. Somnolent, wakes up for exam. No acute distress. SKIN: Warm and dry. HEAD: Normocephalic. EYES: No scleral icterus. No injection or drainage. NECK: Supple, trachea midline. No JVD- CARDIOVASCULAR: Regular rate and rhythm without murmurs, gallops, or rubs. RESPIRATORY: Breath sounds equal bilaterally. No accessory muscle use. GASTROINTESTINAL: Abdomen soft, non-tender, nondistended. MUSCULOSKELETAL: No cyanosis, or edema. BACK: Nontender without obvious deformity. No CVA tenderness. A/P Assessment and Plan 2/3. Patient still lightheaded upon standing. Systolic blood pressure still low, 113 this morning. We'll give fluid bolus. expect to improve off of Flomax. 2/2 Discussed with nursing. Systolic blood pressures down the 70s with standing. Improved in bed. We'll discontinue patient's Flomax in hopes of of improved blood pressures.. Order FLORIAN hose before standing. 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 Chronic changes. Neurology following. Appreciate assistance. Echocardiogram, EEG pending. Follow-up results. Continue aspirin and Plavix. = 2/2. Echo with normal ejection fraction, mild valvulopathy. Marketed orthostatic blood pressures. Follow-up PT recommendations. disContinue Flomax. Follow-up Holter. = 2/3. Still with hypotension upon standing. Start IV fluids. Continue off of Flomax. //KARLEE BUN/creatinine 37/1.55 (no baseline for comparison) IV fluid hydration Monitor renal function = Creatinine improved 1.1 today. Continue to monitor. IV fluids. = 2/2. Repeat labs pending. = . Creatinine 1.12 today, improved. BUN creatinine ratio shows dehydration. We'll start on IV fluids. //Right arm laceration. Nonstick dressing. No signs of infection. Wound care consulted. // Hypertension/CAD/hyperlipidemia/BPH Continue home medications Clonidine will be when necessary as patient hypotensive in the emergency department = Permissive hypertension due to above. = 2/2. Discontinue Flomax. = Systolic blood pressure still low. We'll start on IV fluids with D5, bicarbonate. Follow-up tomorrow. //BPH. Holding Flomax due to orthostatic hypotension. Prophylaxis. Patient with ecchymosis on bilateral arms. We'll hold anticoagulation for now. SCDs. Discharge Planning NEURO cleareed for PT/rehab Still marked orthostatic hypotension, fall 2/ holter pending. -waiting for better bp off of flomax Physical therapy and occupational therapy consulted. Oscar Whalen MD Aug 23, 2017 12:47
[2017-08-23] MEDS: SODIUM BICARBONATE 8.4% INJ 100 MEQ in DEXTROSE 5% IN WATE 1000ML INJ 1,000 ML IV SCH ×2 (15:54)
[2017-08-23] MEDS ORDERED: CYANOCOBALAMIN 1,000 MCG TAB PO ONE (16:45)
[2017-08-23] MEDS: ATORVASTATIN 80 MG TAB PO SCH (21:02)
[2017-08-24] VITALS (9 sets, daily range): BP systolic 134–187; BP diastolic 65–84; PULSE 62–80; RESP 18–22; TEMP 97.7–98; O2SAT 94–98
[2017-08-24] MEDS: LEVOTHYROXINE SODIUM 25 MCG TAB PO SCH (06:14)
[2017-08-24] MEDS: SODIUM BICARBONATE 8.4% INJ 100 MEQ in DEXTROSE 5% IN WATE 1000ML INJ 1,000 ML IV SCH ×2 (06:14)
[2017-08-24 07:13] LABS: AUTOMATED NEUTROPHIL # 6.8 TH/MM3 (1.8-7.7); BASOPHIL % 0.5 % (0.0-2.0); EOSINOPHIL # 0.1 TH/MM3 (0-0.4); HEMATOCRIT 35.1 % (39.0-51.0); HEMOGLOBIN 12.3 GM/DL (13.0-17.0); LYMPHOCYTE # 0.7 TH/MM3 (1.0-4.8); MEAN CELL VOLUME 93.1 FL (80.0-100.0); MEAN CORPUSCULAR HEMOGLOBIN 32.6 PG (27.0-34.0); MEAN PLATELET VOLUME 7.3 FL (7.0-11.0); MONO % 9.2 % (0.0-8.0); MONOCYTE # 0.8 TH/MM3 (0-0.9); NEUT % 81.3 % (16.0-70.0); PLATELET COUNT 180 TH/MM3 (150-450); RED BLOOD COUNT 3.77 MIL/MM3 (4.50-5.90); RED CELL DISTRIBUTION WIDTH 13.9 % (11.6-17.2); WHITE BLOOD COUNT 8.3 TH/MM3 (4.0-11.0)
[2017-08-24 07:39] LABS: ALBUMIN 3.1 GM/DL (3.4-5.0); BICARBONATE 26.9 MEQ/L (21.0-32.0); CALCIUM 8.6 MG/DL (8.5-10.1); CREATININE 1.03 MG/DL (0.60-1.30); MAGNESIUM 1.8 MG/DL (1.5-2.5); PHOSPHORUS 2.9 MG/DL (2.5-4.9)
[2017-08-24] MEDS: ASPIRIN 81 MG CHEW TAB CHEW SCH (07:57)
[2017-08-24] MEDS: SODIUM CHLORIDE 0.9% FLUSH 10 ML FLUSH IV FLUSH SCH (07:58)
[2017-08-24] MEDS: CLOPIDOGREL 75 MG TAB PO SCH (07:58)
[2017-08-24] MEDS: RANOLAZINE 500 MG EXTENDED RELEASE TAB PO SCH (07:59)
[2017-08-24] MEDS ORDERED: THIAMINE HCL 100 MG TAB PO SCH (09:00)
[2017-08-24] MEDS ORDERED: CYANOCOBALAMIN 1,000 MCG TAB PO SCH (09:00)
--- NOTE | 2017-08-24 10:35 | HHI.PR ---
Subjective Remarks Patient reports feeling all right this morning. He is afraid to stand up due to lightheadedness. He is not set up today. Objective Vital Signs Date Time Temp Pulse Resp B/P (MAP) Pulse Ox O2 Delivery O2 Flow Rate FiO2 08/24/17 09:01 Room Air 08/24/17 08:00 72 08/24/17 04:42 97.9 69 18 135/65 (88) 94 08/24/17 04:00 Room Air 08/24/17 03:49 71 08/24/17 00:17 98.0 75 20 187/82 (117) 98 08/24/17 00:00 75 08/24/17 00:00 Room Air 08/23/17 20:05 77 08/23/17 20:00 Room Air 08/23/17 20:00 98.3 82 18 186/85 (118) 98 08/23/17 17:54 Room Air 08/23/17 17:00 70 08/23/17 16:07 98.4 72 18 154/71 (98) 99 08/23/17 12:07 98.1 82 19 145/67 (93) 96 08/23/17 12:00 75 08/23/17 11:50 Room Air I/O 08/23/17 08/23/17 08/23/17 08/24/17 08/24/17 08/24/17 06:59 14:59 22:59 06:59 14:59 22:59 Intake Total 480 ml 420 ml 1065 ml Output Total 1125 ml 950 ml Balance -645 ml 420 ml 115 ml Intake Oral 480 ml 420 ml IV Total 1065 ml Output Urine Total 1125 ml 950 ml # Voids 5 # Bowel Movements 1 0 1 Result Diagram: 08/24/17 0604 08/24/17 0604 Objective Remarks GENERAL: Patient sitting up in bed. Somnolent, wakes up for exam. No acute distress. No change on exam. SKIN: Warm and dry. HEAD: Normocephalic. EYES: No scleral icterus. No injection or drainage. NECK: Supple, trachea midline. No JVD- CARDIOVASCULAR: Regular rate and rhythm without murmurs, gallops, or rubs. RESPIRATORY: Breath sounds equal bilaterally. No accessory muscle use. GASTROINTESTINAL: Abdomen soft, non-tender, nondistended. MUSCULOSKELETAL: No cyanosis, or edema. BACK: Nontender without obvious deformity. No CVA tenderness. A/P Assessment and Plan 08/24. Blood pressure higher today, improved on D5, bicarbonate, holding Flomax. Expect improved orthostatic hypotension. 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 Chronic changes. Neurology following. Appreciate assistance. Echocardiogram, EEG pending. Follow-up results. Continue aspirin and Plavix. = 2/. Echo with normal ejection fraction, mild valvulopathy. Marketed orthostatic blood pressures. Follow-up PT recommendations. disContinue Flomax. Follow-up Holter. = 2. Still with hypotension upon standing. Start IV fluids. Continue off of Flomax. /. Blood pressure higher today, improved on D5, bicarbonate, holding Flomax. Expect improved orthostatic hypotension. //KARLEE BUN/creatinine 37/1.55 (no baseline for comparison) IV fluid hydration Monitor renal function = Creatinine improved 1.1 today. Continue to monitor. IV fluids. = 2/. Repeat labs pending. = 08/24. Creatinine 1.03 today, improved. BUN creatinine ratio shows dehydration. cont IV fluids. //Right arm laceration. Nonstick dressing. No signs of infection. Wound care consulted. // Hypertension/CAD/hyperlipidemia/BPH Continue home medications Clonidine will be when necessary as patient hypotensive in the emergency department = Permissive hypertension due to above. = 2/. Discontinue Flomax. = Systolic blood pressure still low. We'll start on IV fluids with D5, bicarbonate. Follow-up tomorrow. = 2/. Blood pressure improved. Continue IV fluids to D5, bicarbonate. //BPH. Holding Flomax due to orthostatic hypotension. Prophylaxis. Patient with ecchymosis on bilateral arms. We'll hold anticoagulation for now. SCDs. Discharge Planning NEURO cleareed for PT/rehab Still marked orthostatic hypotension, fall / holter pending. Physical therapy and occupational therapy consulted. =hadley discharge to rehabilitation in the next couple days. Oscar hWalen MD Aug 24, 2017 10:35
[2017-08-24] MEDS ORDERED: VITA10002 PO (11:31)
[2017-08-24] MEDS ORDERED: THIA100 PO (11:31)
--- NOTE | 2017-08-24 11:34 | HHI.DS ---
Discharge Summary Admission Date Aug 20, 2017 at 18:36 Discharge Date: Aug 24, 2017 Admitting Diagnosis Syncope (1) Syncope ICD Code: R55 - Syncope and collapse (2) Lightheadedness ICD Code: R42 - Dizziness and giddiness (3) Orthostatic hypotension ICD Code: I95.1 - Orthostatic hypotension Procedures No invasive procedures Brief History - From Admission 87-year-old male with a past medical history significant for CAD, hypertension and osteoarthritis presents to the emergency department for evaluation of multiple syncopal episodes. The patient reports that he has been having "spells " for the past 2-3 years although they have become more frequent. He reports four spells over the past 3 days with the syncopal event today resulting in a fall with a right elbow laceration. Patient states that he feels dizzy and is if his body is moving in a stationary room preceding a blackout for an unspecified amount of time. He endorses loss of consciousness with each of these spells. He denies loss of bowel or bladder following the spells. He denies any significant postictal period. CBC/BMP: 08/24/17 0604 08/24/17 0604 Significant Findings Laboratory Tests Test 08/22/17 18:31 08/23/17 08:08 08/24/17 06:04 Red Blood Count 3.77 MIL/MM3 (4.50-5.90) 3.99 MIL/MM3 (4.50-5.90) 3.77 MIL/MM3 (4.50-5.90) Hemoglobin 12.0 GM/DL (13.0-17.0) 12.8 GM/DL (13.0-17.0) 12.3 GM/DL (13.0-17.0) Hematocrit 35.2 % (39.0-51.0) 37.2 % (39.0-51.0) 35.1 % (39.0-51.0) Neutrophils (%) (Auto) 80.5 % (16.0-70.0) 83.4 % (16.0-70.0) 81.3 % (16.0-70.0) Lymphocytes # (Auto) 0.9 TH/MM3 (1.0-4.8) 0.6 TH/MM3 (1.0-4.8) 0.7 TH/MM3 (1.0-4.8) Blood Urea Nitrogen 33 MG/DL (7-18) 26 MG/DL (7-18) 23 MG/DL (7-18) Creatinine 1.39 MG/DL (0.60-1.30) Random Glucose 129 MG/DL (74-106) Estimat Glomerular Filtration Rate 48 ML/MIN (>89) 62 ML/MIN (>89) 68 ML/MIN (>89) Lymphocytes (%) (Auto) 7.6 % (9.0-44.0) 8.0 % (9.0-44.0) Monocytes (%) (Auto) 9.2 % (0.0-8.0) Albumin 3.1 GM/DL (3.4-5.0) Imaging Last Impressions Neck Magnetic Resonance Angiography 08/20/171803 Signed Impressions: Service Date/Time: Sunday, August 20, 2017 18:40 - CONCLUSION: Minimal stenosis involving the right proximal internal carotid artery. Otherwise unremarkable MRA of the carotids. 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 Abilio Marin MD Brain MRI 08/20/171803 Signed Impressions: Service Date/Time: Sunday, August 20, 2017 18:40 - CONCLUSION: 1. Tiny foci of hyperintensity are noted within the left basal ganglia and mid periventricular white matter on the diffusion weighted images suggestive of probable subacute lacunar infarcts. 2. 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 3. Mild periventricular and subcortical white matter small vessel ischemic changes bilaterally. 4. Mild cerebral atrophy. 5. No acute hemorrhage, midline shift or extra axial fluid collections. Abilio Marin MD Head CT 08/20/17 1622 Signed Impressions: Service Date/Time: Sunday, August 20, 2017 17:13 - CONCLUSION: 1. 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 MRI may be warranted. 2. No midline shift or mass effect. Julian Cisneros MD Chest X-Ray 08/20/17 1622 Signed Impressions: Service Date/Time: Sunday, August 20, 2017 16:39 - CONCLUSION: No acute cardiopulmonary disease. Andrea Catherine Jr., MD Hospital Course EKG showed left bundle branch block, cardiology consulted, recommends Holter monitor which read is pending. She was monitored on telemetry without any arrhythmia. Neurology was consulted. MRI brain performed which is suggestive of subacute the clear infarcts in the left basal ganglia, encephalomalacia of the left occipital lobe consistent with probable old infarct, as well as mild periventricular and subcortical white matter small vessel ischemic changes. MRA brain shows occlusion of left HAND BUFFING WHEEL FORMER. Patient was found to be markedly orthostatic with systolic blood pressures in the 150s supine, 90s while standing. EEG shows mild encephalopathy and sleep state, but no seizure activity. Patient complained of lightheadedness when standing. Patient's Flomax was discontinued improvement in blood pressure, as well as improvement in orthostatic lightheadedness. She was also found to have suspected B12 deficiency with B12 of 357. Patient will follow-up with neurology, cardiology as outpatient. For problem-based summary from most recent progress note, please see below. 2. Blood pressure higher today, improved on D5, bicarbonate, holding Flomax. Expect improved orthostatic hypotension. 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 Chronic changes. Neurology following. Appreciate assistance. Echocardiogram, EEG pending. Follow-up results. Continue aspirin and Plavix. = 2/2. Echo with normal ejection fraction, mild valvulopathy. Marketed orthostatic blood pressures. Follow-up PT recommendations. disContinue Flomax. Follow-up Holter. = 2/3. Still with hypotension upon standing. Start IV fluids. Continue off of Flomax. 2/. Blood pressure higher today, improved on D5, bicarbonate, holding Flomax. Expect improved orthostatic hypotension. //KARLEE BUN/creatinine 37/1.55 (no baseline for comparison) IV fluid hydration Monitor renal function = Creatinine improved 1.1 today. Continue to monitor. IV fluids. = 2/2. Repeat labs pending. = 08/24. Creatinine 1.03 today, improved. BUN creatinine ratio shows dehydration. cont IV fluids. //Right arm laceration. Nonstick dressing. No signs of infection. Wound care consulted. // Hypertension/CAD/hyperlipidemia/BPH Continue home medications Clonidine will be when necessary as patient hypotensive in the emergency department = Permissive hypertension due to above. = 2/. Discontinue Flomax. = Systolic blood pressure still low. We'll start on IV fluids with D5, bicarbonate. Follow-up tomorrow. = 08/24. Blood pressure improved. Continue IV fluids to D5, bicarbonate. //BPH. Holding Flomax due to orthostatic hypotension. Prophylaxis. Patient with ecchymosis on bilateral arms. We'll hold anticoagulation for now. SCDs. Discharge Planning NEURO cleareed for PT/rehab Still marked orthostatic hypotension, fall 08/22 holter pending. Physical therapy and occupational therapy consulted. =hadley discharge to rehabilitation in the next couple days. Pt Condition on Discharge: Good Discharge Disposition: Discharge to SNF Discharge Time: > 30 minutes Discharge Instructions DIET: Follow Instructions for: As Tolerated, No Restrictions Activities you can perform: Regular-No Restrictions Other Activity Instructions: walk with supervision/assist. Follow up Referrals: Cardiology - 1 Week with Manish Cruz MD Neurology - 1 Week with Nyla Arzate MD New Medications: Cyanocobalamin (Vitamin B-12) 1,000 Mcg Tab 1000 MCG PO DAILY for vitamin for 30 Days, #3 TAB Thiamine HCl (Gnp Vitamin B-1) 100 Mg Tab 100 MG PO DAILY for vitamin for 30 Days, #30 TAB Continued Medications: Aspirin (Aspirin) 81 Mg Chew 81 MG CHEW DAILY, TAB 0 Refills Atorvastatin (Atorvastatin) 80 Mg Tab 80 MG PO HS for Cholesterol Management, #30 TAB 0 Refills Clopidogrel (Clopidogrel) 75 Mg Tab 75 MG PO DAILY for Blood Clot Prevention, #30 TAB 0 Refills Levothyroxine (Levothyroxine) 25 Mcg Tab 25 MCG PO DAILY for Thyroid, #30 TAB 0 Refills Ranolazine ER 12 HR (Ranexa ER 12 HR) 500 Mg Tab 500 MG PO BID for Chest Pain, #60 TAB 0 Refills Discontinued Medications: Clonidine (Clonidine) 0.1 Mg Tab 0.05 MG PO HS for Blood Pressure Management, #60 TAB 0 Refills Naproxen (Naproxen) 500 Mg Tab 500 MG PO BID, #60 TAB 0 Refills Tamsulosin (Tamsulosin) 0.4 Mg Cap 0.4 MG PO HS for Manage Prostate Problems, #30 CAP 0 Refills Oscar Whalen MD Aug 24, 2017 11:34
== END 2017-08-24 19:40 | DRG 312 ==
LOC: NEPC 14:34 → NEDA 18:36 → N04A 19:40
PROVIDERS: ADMIT Hospitalist; ATTEND Hospitalist
DX: I95.1 Orthostatic hypotension (principal); N17.9 Acute kidney failure, unspecified; G93.40 Encephalopathy, unspecified; I66.22 Occlusion and stenosis of left posterior cerebral artery; E86.0 Dehydration; I25.10 Atherosclerotic heart disease of native coronary artery without angina pectoris; I10 Essential (primary) hypertension; E03.9 Hypothyroidism, unspecified; E78.5 Hyperlipidemia, unspecified; N40.0 Benign prostatic hyperplasia without lower urinary tract symptoms; M19.90 Unspecified osteoarthritis, unspecified site; W18.30XA Fall on same level, unspecified, initial encounter; S61.511A Laceration without foreign body of right wrist, initial encounter; S51.011A Laceration without foreign body of right elbow, initial encounter; S51.811A Laceration without foreign body of right forearm, initial encounter; Z96.643 Presence of artificial hip joint, bilateral; Z96.653 Presence of artificial knee joint, bilateral; E53.8 Deficiency of other specified B group vitamins; Z79.82 Long term (current) use of aspirin; Z95.5 Presence of coronary angioplasty implant and graft; Z91.81 History of falling; Z79.02 Long term (current) use of antithrombotics/antiplatelets; Z86.73 Personal history of transient ischemic attack (TIA), and cerebral infarction without residual deficits
CPT/HCPCS: 70450; 70544; 70548; 70551; 71045; 80048; 80053; 80061; 80069; 81001; 82607; 83735; 84443; 85025; 85610; 85730; 90471; 90714; 93005; 93225; 93226; 93306; 95819; 96360; A9579; J0360; J1644; J7030; J7040; J7070

== ENCOUNTER 2017-08-27 10:46 | Observation (INO) | payer MEDICARE, BC ==
[~2017-08-27] VITALS: Ht 172.7 cm; Wt 68.0 kg
[~2017-08-27 10:46] MED LIST: ASPI-516 CHEW; ATOR80TA45 PO; CLOP75TA PO; LEVO25TA4 PO; RANO500 PO; THIA100 PO; VITA10002 PO
[2017-08-27 11:07] VITALS: BP 131/65; PULSE 60; RESP 23; TEMP 98.1; O2SAT 97
[2017-08-27] MEDS ORDERED: SODIUM CHLORID 0.9% 500 ML INJ 500 ML IV ONE (11:30)
[2017-08-27] MEDS ORDERED: ASPIRIN 81 MG CHEW TAB PO ONE (11:30)
--- NOTE | 2017-08-27 11:57 | PD ---
HPI Chief Complaint: Chest Pain Time Seen by Provider: 11:11 Travel History International Travel<30 days: No Contact w/Intl Traveler<30days: No Traveled to known affect area: No History of Present Illness HPI 87-year-old male with a history of CAD, hypertension, OA presents to the emergency department from his group home facility for chest pain that started yesterday. States that his pain was located in the left mid sternal region that radiated to the back described as mild. Patient denies shortness of breath, nausea, vomiting. Patient states that he took Tylenol this morning which helped relieve some of his pain. Otherwise denies any palliative or provocative factors. Patient states that his left elbow is more painful than his mid chest. Denies falls since his last admission. States that he was in the hospital earlier this month for a syncopal episode at that time he fell injuring his left arm. Patient states that his left arm pain is not new. Patient is unsure if he took aspirin this morning. PFSH Past Medical History Hx Anticoagulant Therapy: Yes Arthritis: Yes Cancer: No Cardiac Catheterization: Yes Cardiovascular Problems: Yes High Cholesterol: Yes Endocrine: Yes Genitourinary: Yes (BPH ) Hypertension: Yes Immune Disorder: No Musculoskeletal: Yes Neurologic: No Psychiatric: No Reproductive: No Respiratory: No Thyroid Disease: Yes Past Surgical History Eye Surgery: Yes Joint Replacement: Yes Other Surgery: Yes Social History Alcohol Use: No Tobacco Use: No Substance Use: No Allergies-Medications (Allergen,Severity, Reaction): Coded Allergies: No Known Allergies (Unverified , 08/20/17) Reported Meds & Prescriptions Reported Meds & Active Scripts Active Vitamin B-12 (Cyanocobalamin) 1,000 Mcg Tab 1,000 Mcg PO DAILY 30 Days Gnp Vitamin B-1 (Thiamine HCl) 100 Mg Tab 100 Mg PO DAILY 30 Days Reported Levothyroxine (Levothyroxine Sodium) 25 Mcg Tab 25 Mcg PO DAILY Atorvastatin (Atorvastatin Calcium) 80 Mg Tab 80 Mg PO HS Aspirin 81 Mg Chew 81 Mg CHEW DAILY Ranexa ER 12 HR (Ranolazine) 500 Mg Tab 500 Mg PO BID Clopidogrel (Clopidogrel Bisulfate) 75 Mg Tab 75 Mg PO DAILY Review of Systems Except as stated in HPI: all other systems reviewed are Neg Physical Exam Narrative GENERAL: Well-developed well-nourished, lying comfortably in bed SKIN: Focused skin assessment warm/dry. Multiple senile purpura over upper extremities, left lateral elbow with 2 cm skin tear with granulating skin HEAD: Atraumatic. Normocephalic. EYES: Pupils equal and round. No scleral icterus. No injection or drainage. ENT: No nasal bleeding or discharge. Mucous membranes pink and moist. NECK: Trachea midline. No JVD. No lymphadenopathy CARDIOVASCULAR: Regular rate and rhythm. No murmur appreciated. RESPIRATORY: No accessory muscle use. Clear to auscultation. Breath sounds equal bilaterally. GASTROINTESTINAL: Abdomen soft, non-tender, nondistended. Hepatic and splenic margins not palpable. No TTP to chest wall MUSCULOSKELETAL: No obvious deformities. No clubbing. No cyanosis. mild pedal edema bilaterally, Homans sign negative NEUROLOGICAL: Awake and alert. No obvious cranial nerve deficits. Motor grossly within normal limits. Normal speech. PSYCHIATRIC: Appropriate mood and affect; insight and judgment normal. Data Data Last Documented VS Vital Signs Date Time Temp Pulse Resp B/P (MAP) Pulse Ox O2 Delivery O2 Flow Rate FiO2 08/27/17 11:13 58 20 97 08/27/17 11:07 98.1 131/65 (87) Orders Orders Electrocardiogram (08/27/17 11:29) B-Type Natriuretic Peptide (08/27/17 11:29) Complete Blood Count With Diff (08/27/17 11:29) Comprehensive Metabolic Panel (08/27/17 11:29) Prothrombin Time / Inr (Pt) (08/27/17 11:29) Act Partial Throm Time (Ptt) (08/27/17 11:29) Troponin I (08/27/17 11:29) Chest, Single Ap (08/27/17 11:29) Aspirin Chew (Aspirin Chew) (08/27/17 11:30) Sodium Chlorid 0.9% 500 Ml Inj (Ns 500 M (08/27/17 11:30) Urinalysis - C+S If Indicated (08/27/17 12:19) Activity Bed Rest With Brp (08/27/17 12:54) Vital Signs (Adult) Q4H (08/27/17 12:54) Cardiac Rhythm .As Directed (08/27/17 12:54) Notify Dr: Other .PRN (08/27/17 12:54) Notify . Parameters (08/27/17 12:54) Ckmb (Isoenzyme) Profile (08/27/17 14:50) Ckmb (Isoenzyme) Profile (08/27/17 17:50) Troponin I (08/27/17 14:50) Troponin I (08/27/17 17:50) Electrocardiogram (08/27/17 14:50) Electrocardiogram (08/27/17 17:50) ^ Obtain (08/27/17 12:54) Sodium Chloride 0.9% Flush (Ns Flush) (08/27/17 13:00) Sodium Chloride 0.9% Flush (Ns Flush) (08/27/17 21:00) Children Librarian / Telemetry HI.Q8H (08/27/17 12:54) Admit Order (Ed Use Only) (08/27/17 12:54) Labs Laboratory Tests Test 08/27/17 11:50 White Blood Count 9.9 TH/MM3 Red Blood Count 3.69 MIL/MM3 Hemoglobin 11.9 GM/DL Hematocrit 33.8 % Mean Corpuscular Volume 91.5 FL Mean Corpuscular Hemoglobin 32.2 PG Mean Corpuscular Hemoglobin Concent 35.2 % Red Cell Distribution Width 13.2 % Platelet Count 233 TH/MM3 Mean Platelet Volume 7.1 FL Neutrophils (%) (Auto) 80.4 % Lymphocytes (%) (Auto) 6.3 % Monocytes (%) (Auto) 12.7 % Eosinophils (%) (Auto) 0.1 % Basophils (%) (Auto) 0.5 % Neutrophils # (Auto) 7.9 TH/MM3 Lymphocytes # (Auto) 0.6 TH/MM3 Monocytes # (Auto) 1.3 TH/MM3 Eosinophils # (Auto) 0.0 TH/MM3 Basophils # (Auto) 0.1 TH/MM3 CBC Comment DIFF FINAL Differential Comment Prothrombin Time 11.8 SEC Prothromb Time International Ratio 1.2 RATIO Activated Partial Thromboplast Time 30.9 SEC Blood Urea Nitrogen 26 MG/DL Creatinine 1.16 MG/DL Random Glucose 102 MG/DL Total Protein 6.4 GM/DL Albumin 3.0 GM/DL Calcium Level 9.1 MG/DL Alkaline Phosphatase 90 U/L Aspartate Amino Transf (AST/SGOT) 25 U/L Alanine Aminotransferase (ALT/SGPT) 26 U/L Total Bilirubin 0.8 MG/DL Sodium Level 135 MEQ/L Potassium Level 3.9 MEQ/L Chloride Level 101 MEQ/L Carbon Dioxide Level 26.8 MEQ/L Anion Gap 7 MEQ/L Estimat Glomerular Filtration Rate 59 ML/MIN Troponin I 0.03 NG/ML B-Type Natriuretic Peptide 441 PG/ML MDM Medical Decision Making Medical Screen Exam Complete: Yes Emergency Medical Condition: Yes Differential Diagnosis angina, unstable angina, NSTEMI, skin tear right elbow Narrative Course 87-year-old male with a history of CAD, hypertension, OA presents to the emergency department from his group home facility for chest pain that started yesterday while sitting. States that his pain was located in the left mid sternal region that radiated to the back described as mild. Patient denies shortness of breath, nausea, vomiting. Patient states that he took Tylenol this morning which helped relieve some of his pain. Otherwise denies any palliative or provocative factors. Patient states that his left elbow is more painful than his mid chest. Denies falls since his last admission. Denies fevers , chills. States that he was in the hospital earlier this month for a syncopal episode at that time he fell injuring his left arm. Patient states that his left arm pain is not new. Patient is unsure if he took aspirin this morning. Vital signs stable EKG similar to previous tracing July 2017. Last echo 08/22/17 EF 60%, mild aortic stenosis. BASA administered. 500cc NS administered. Troponin 0.03, BNP 441. No previous BNP for reference. Patient continues to deny shortness of breath. States his chest pain is minor after Tylenol. Mild pedal edema at best. Patient will be admitted to the chest pain center. Note that DDimer was inadvertently ordered and I cancelled this lab. Skin tears cleansed and wound dressed. After Dr Tan and Zechariah discussed the patient, he says that the patient would be more appropriate for Observation. The SNF paperwork mentioned weakness as a reason he was sent over however, pt did not exhibit weakness during the exam today. His elbows seemed to be tender but denies any new falls or injury. He did have a skin tear to the right elbow but continued to have FROM of bilateral elbows. Pt admitted to Dr Bautista. Diagnosis Primary Impression: Skin tear of elbow without complication Qualified Codes: S51.011A - Laceration without foreign body of right elbow, initial encounter Additional Impression: Chest pain Qualified Codes: R07.89 - Other chest pain Admitting Information Admitting Physician Requests: Observation Condition: Stable Aviva Wick Aug 27, 2017 11:57
[2017-08-27 12:16] LABS: AUTOMATED NEUTROPHIL # 7.9 TH/MM3 (1.8-7.7); BASOPHIL # 0.1 TH/MM3 (0-0.2); BASOPHIL % 0.5 % (0.0-2.0); EOSINOPHIL % 0.1 % (0.0-4.0); HEMATOCRIT 33.8 % (39.0-51.0); HEMOGLOBIN 11.9 GM/DL (13.0-17.0); LYMPH % 6.3 % (9.0-44.0); LYMPHOCYTE # 0.6 TH/MM3 (1.0-4.8); MEAN CELL VOLUME 91.5 FL (80.0-100.0); MEAN CORPUSCULAR HEMOGLOBIN 32.2 PG (27.0-34.0); MEAN CORPUSCULAR HGB CONC 35.2 % (32.0-36.0); MEAN PLATELET VOLUME 7.1 FL (7.0-11.0); MONO % 12.7 % (0.0-8.0); MONOCYTE # 1.3 TH/MM3 (0-0.9); NEUT % 80.4 % (16.0-70.0); PLATELET COUNT 233 TH/MM3 (150-450); RED BLOOD COUNT 3.69 MIL/MM3 (4.50-5.90); RED CELL DISTRIBUTION WIDTH 13.2 % (11.6-17.2); WHITE BLOOD COUNT 9.9 TH/MM3 (4.0-11.0)
--- NOTE | 2017-08-27 12:18 | RADRPT ---
EXAM DATE/TIME: 08/27/2017 11:39 [facility] COMPARISON: CHEST SINGLE AP, August 20, 2017, 16:39. INDICATIONS : General weakness. MEDICAL HISTORY : Hypothyroidism. Cardiovascular disease Hypertension. SURGICAL HISTORY : None. ENCOUNTER: Initial ACUITY: 1 day PAIN SCORE: 10 LOCATION: Bilateral chest FINDINGS: A single view of the chest demonstrates the lungs to be symmetrically aerated without evidence of mas s, infiltrate or effusion. No evidence of pneumothorax. The cardiomediastinal contours are unremarka ble. Stable degenerative changes in the thoracic spine and thoracolumbar curvature. intact. CONCLUSION: No infiltrates seen. Andrea Ward MD on August 27, 2017 at 12:14 Board Certified Radiologist. This report was verified electronically.
[2017-08-27 12:28] LABS: INTERNATIONAL NORMALIZED RATIO 1.2 RATIO; PROTHROMBIN TIME - PATIENT 11.8 SEC (9.8-11.6)
[2017-08-27 12:39] LABS: ALT (GPT) 26 U/L (12-78)
[2017-08-27 12:42] LABS: ALKALINE PHOSPHATASE 90 U/L (45-117); AST (GOT) 25 U/L (15-37); BICARBONATE 26.8 MEQ/L (21.0-32.0); BLOOD UREA NITROGEN 26 MG/DL (7-18); CALCIUM 9.1 MG/DL (8.5-10.1); CHLORIDE 101 MEQ/L (98-107); CREATININE 1.16 MG/DL (0.60-1.30); GLOMERULAR FILTRATION RATE 59 ML/MIN (>89); GLUCOSE,RANDOM 102 MG/DL (74-106); SODIUM (NA) 135 MEQ/L (136-145); TOTAL BILIRUBIN ADULT 0.8 MG/DL (0.2-1.0); TOTAL PROTEIN 6.4 GM/DL (6.4-8.2); TROPONIN I 0.03 NG/ML (0.02-0.05)
[2017-08-27] MEDS ORDERED: ACETAMINOPHEN 325 MG TAB PO PRN (14:00)
[2017-08-27] MEDS ORDERED: NALOXONE HCL 0.4 MG/ML AMP IV PUSH PRN (14:00)
[2017-08-27] MEDS ORDERED: SODIUM CHLORIDE 0.9% FLUSH 10 ML FLUSH IV FLUSH PRN (14:00)
[2017-08-27] MEDS ORDERED: MAGNESIUM HYDROXIDE SUSP 30 ML CUP PO PRN (14:00)
[2017-08-27] MEDS ORDERED: ONDANSETRON HCL 4 MG/2 ML VIAL IVP PRN (14:00)
--- NOTE | 2017-08-27 14:11 | HHI.HP ---
[facility] Unknown Admission Diagnosis angina, atypical chest pain Diagnoses: Chief Complaint: Chest pain and left shoulder and elbow pain Travel History International Travel<30 Days: No Contact w/Intl Traveler <30 Da: No Traveled to Known Affected Are: No History of Present Illness This is a 87-year-old male past medical history of coronary artery disease status post stent placement, hypertension, and osteoarthritis who presented with chest pain radiating to left shoulder and elbow. Patient stated that chest pain started yesterday he is unsure what time and what he was doing when the chest pain occurred. Patient stated chest pain is mild and pain is mostly in his left shoulder and arm. He stated that pain was constant throughout most of the day yesterday and resolved on its own. He denies any chest pain at the moment. He stated that his pain is mostly in the left shoulder and arm. Denies any traumas or falls. Denies any shortness of breathing, lightheadedness /dizziness, or palpitations. He denies any nausea, vomiting, or diaphoresis with this episode. Patient stated that he resides in a [facility] and that he is able to walk with a walker but he stated that it has been difficult. All other review of system reviewed and negative. Past Family Social History Past Medical History Hypertension Coronary artery disease Osteoarthritis Past Surgical History Bilateral hip replacement Bilateral knee replacement Cardiac catheterization with stent 2 in 1999 Reported Medications Reported Meds & Active Scripts Active Vitamin B-12 (Cyanocobalamin) 1,000 Mcg Tab 1,000 Mcg PO DAILY 30 Days Gnp Vitamin B-1 (Thiamine HCl) 100 Mg Tab 100 Mg PO DAILY 30 Days Reported Levothyroxine (Levothyroxine Sodium) 25 Mcg Tab 25 Mcg PO DAILY Atorvastatin (Atorvastatin Calcium) 80 Mg Tab 80 Mg PO HS Aspirin 81 Mg Chew 81 Mg CHEW DAILY Ranexa ER 12 HR (Ranolazine) 500 Mg Tab 500 Mg PO BID Clopidogrel (Clopidogrel Bisulfate) 75 Mg Tab 75 Mg PO DAILY Allergies: Coded Allergies: No Known Allergies (Unverified , 08/20/17) Active Ordered Medications Current Medications Aspirin (Aspirin Chew) 81 mg ONCE ONCE PO Last administered on 08/27/17at 11:54 ; Start 08/27/17 at 11:30; Stop 08/27/17 at 11:31; Status DC Sodium Chloride 500 ml @ 500 mls/hr ONCE ONCE IV Last administered on at 11:53; Start 08/27/17 at 11:30; Stop 08/27/17 at 12:29; Status DC Sodium Chloride (NS Flush) 2 ml UNSCH PRN IV FLUSH FLUSH AFTER USING IV ACCESS ; Start 08/27/17 at 13:00 Sodium Chloride (NS Flush) 2 ml BID IV FLUSH ; Start 08/27/17 at 21:00 Sodium Chloride (NS Flush) 2 ml UNSCH PRN IV FLUSH FLUSH AFTER USING IV ACCESS ; Start 08/27/17 at 14:00; Stop 08/27/17 at 14:00; Status DC Sodium Chloride (NS Flush) 2 ml BID IV FLUSH ; Start 08/27/17 at 21:00; Stop 08/27 at 21:00; Status DC Acetaminophen (Tylenol) 650 mg Q4H PRN PO TEMP > 100.4; Start 08/27/17 at 14:00 Ondansetron HCl (Zofran Inj) 4 mg Q6H PRN IVP NAUSEA OR VOMITING; Start at 14:00 Naloxone HCl (Narcan Inj) 0.4 mg UNSCH PRN IV PUSH SEE LABEL COMMENTS; Start at 14:00 Magnesium Hydroxide (Milk Of Magnesia Liq) 30 ml Q12H PRN PO Mild constipation ; Start 08/27/17 at 14:00 Aspirin (Aspirin Chew) 81 mg DAILY CHEW ; Start 08/28/17 at 09:00 Atorvastatin Calcium (Lipitor) 80 mg HS PO ; Start 08/27/17 at 21:00; Status UNV Clopidogrel Bisulfate (Plavix) 75 mg DAILY PO ; Start 08/28/17 at 09:00; Status UNV Cyanocobalamin (Vitamin B12) 1,000 mcg DAILY PO ; Start 08/28/17 at 09:00; Status UNV Levothyroxine Sodium (Synthroid) 25 mcg DAILY PO ; Start 08/28/17 at 09:00; Status UNV Ranolazine (Ranexa) 500 mg BID PO ; Start 08/27/17 at 21:00; Status UNV Thiamine HCl (Vitamin B1) 100 mg DAILY PO ; Start 08/28/17 at 09:00; Status UNV Family History No family history of CAD/DM Social History Patient currently in the rehab center he stated that he can walk with a walker. Denies alcohol, tobacco or illicit drugs Physical Exam Vital Signs Vital Signs Date Time Temp Pulse Resp B/P (MAP) Pulse Ox O2 Delivery O2 Flow Rate FiO2 08/27/17 11:13 58 20 97 08/27/17 11:07 98.1 60 23 131/65 (87) 97 Physical Exam GENERAL: This is a well-nourished, well-developed patient, in no apparent distress. SKIN: Patient's skin is very thin and bilateral arm are edematous with ecchymosis on bilateral medial portion of the forearm. There is some questionable erythema on the left medial portion of the forearm. HEAD: Atraumatic. Normocephalic. No temporal or scalp tenderness. EYES: Pupils equal round and reactive. Extraocular motions intact. No scleral icterus. No injection or drainage. ENT: Nose without bleeding, purulent drainage or septal hematoma. Throat without erythema, tonsillar hypertrophy or exudate. Uvula midline. Airway patent. NECK: Trachea midline. No JVD or lymphadenopathy. Supple, nontender, no meningeal signs. CARDIOVASCULAR: Regular rate and rhythm without murmurs, gallops, or rubs. RESPIRATORY: Clear to auscultation. Breath sounds equal bilaterally. No wheezes , rales, or rhonchi. GASTROINTESTINAL: Abdomen soft, non-tender, nondistended. No hepato-splenomegaly , or palpable masses. No guarding. MUSCULOSKELETAL: Left arm with range of motion at the shoulder or elbow pain mostly at the elbow. Positive tenderness to palpation on the left elbow. No tenderness palpation of the left shoulder. When I move the shoulder patient stated pain is more in the elbow. Patient able to move both shoulder and elbow but painful. No warmth noted at the elbow. Mild edema noticed around the forearm and elbow. NEUROLOGICAL: Awake and alert. Cranial nerves II through XII intact. Motor and sensory grossly within normal limits. Five out of 5 muscle strength in all muscle groups. Normal speech. Laboratory Laboratory Tests Test 08/27/17 11:50 White Blood Count 9.9 Red Blood Count 3.69 Hemoglobin 11.9 Hematocrit 33.8 Mean Corpuscular Volume 91.5 Mean Corpuscular Hemoglobin 32.2 Mean Corpuscular Hemoglobin Concent 35.2 Red Cell Distribution Width 13.2 Platelet Count 233 Mean Platelet Volume 7.1 Neutrophils (%) (Auto) 80.4 Lymphocytes (%) (Auto) 6.3 Monocytes (%) (Auto) 12.7 Eosinophils (%) (Auto) 0.1 Basophils (%) (Auto) 0.5 Neutrophils # (Auto) 7.9 Lymphocytes # (Auto) 0.6 Monocytes # (Auto) 1.3 Eosinophils # (Auto) 0.0 Basophils # (Auto) 0.1 CBC Comment DIFF FINAL Differential Comment Prothrombin Time 11.8 Prothromb Time International Ratio 1.2 Activated Partial Thromboplast Time 30.9 Blood Urea Nitrogen 26 Creatinine 1.16 Random Glucose 102 Total Protein 6.4 Albumin 3.0 Calcium Level 9.1 Alkaline Phosphatase 90 Aspartate Amino Transf (AST/SGOT) 25 Alanine Aminotransferase (ALT/SGPT) 26 Total Bilirubin 0.8 Sodium Level 135 Potassium Level 3.9 Chloride Level 101 Carbon Dioxide Level 26.8 Anion Gap 7 Estimat Glomerular Filtration Rate 59 Troponin I 0.03 B-Type Natriuretic Peptide 441 Result Diagram: 08/27/17 1150 08/27/17 1150 Imaging Last Impressions Chest X-Ray 08/27/17 1129 Signed Impressions: Service Date/Time: Sunday, August 27, 2017 11:39 - CONCLUSION: No infiltrates seen. MD Davida Newby VTE Risk Assessment Capbonifacio VTE Risk Assessment: Mod/High Risk (score >= 2) Caprini Risk Assessment Model Point Value = 1 Point Value = 2 Point Value = 3 Point Value = 5 Age 41-60 Minor surgery BMI > 25 kg/m2 Swollen legs Varicose veins or History of unexplained or recurrent spontaneous Oral contraceptives or hormone replacement Sepsis (< 1 month) Serious lung disease, including pneumonia (< 1 month) Abnormal pulmonary function Acute myocardial infarction Congestive heart failure (< 1 month) History of inflammatory bowel disease Medical patient at bed rest Age 61-74 Arthroscopic surgery Major open surgery (> 45 min) Laparoscopic surgery (> 45 min) Malignancy Confined to bed (> 72 hours) Immobilizing plaster cast Central venous access Age >= 75 History of VTE Family history of VTE Factor V Leiden Prothrombin [id number] Lupus anticoagulant Anticardiolipin antibodies Elevated serum homocysteine Heparin-induced thrombocytopenia Other congenital or acquired thrombophilia Stroke (< 1 month) Elective arthroplasty Hip, pelvis, or leg fracture Acute spinal cord injury (< 1 month) Prophylaxis Regimen Total Risk Factor Score Risk Level Prophylaxis Regimen 0-1 Low Early ambulation 2 Moderate Order ONE of the following: *Sequential Compression Device (SCD) *Heparin 5000 units SQ BID 3-4 Higher Order ONE of the following medications: *Heparin 5000 units SQ TID *Enoxaparin/Lovenox 40 mg SQ daily (WT < 150 kg, CrCl > 30 mL/min) *Enoxaparin/Lovenox 30 mg SQ daily (WT < 150 kg, CrCl > 10-29 mL/min) *Enoxaparin/Lovenox 30 mg SQ BID (WT < 150 kg, CrCl > 30 mL/min) AND/OR *Sequential Compression Device (SCD) 5 or more Highest Order ONE of the following medications: *Heparin 5000 units SQ TID (Preferred with Epidurals) *Enoxaparin/Lovenox 40 mg SQ daily (WT < 150 kg, CrCl > 30 mL/min) *Enoxaparin/Lovenox 30 mg SQ daily (WT < 150 kg, CrCl > 10-29 mL/min) *Enoxaparin/Lovenox 30 mg SQ BID (WT < 150 kg, CrCl > 30 mL/min) AND *Sequential Compression Device (SCD) Assessment and Plan Assessment and Plan 87-year-old male history of coronary artery disease status post stent placement , hypertension, osteoarthritis who presented with chest pain, left shoulder and elbow pain Chest pain -Patient chest pain sounds atypical and he seems to be more concerned about his left shoulder and elbow pain. -First set cardiac enzymes negative and EKG showed stable from previous EKG. Echo from 08/22/17 EF 60%, mild aortic stenosis. -We will get 2 more sets of cardiac enzymes and EKG. Since patient is high risk but chest pain sounds atypical we will get a nuclear stress test. -At the moment he is chest pain-free. Will give nitroglycerin if he has any recurrence of chest pain. -Resume his home medication. Left shoulder/elbow pain -Pain is actually more in the elbow. Most likely secondary to osteoarthritis. Unsure if patient had any trauma to the area. We will get an x-ray. Questionable left forearm cellulitis -Patient does not have any fevers or white count. He does have some erythema in the area. Will treat empirically for cellulitis with Keflex. -Continue to monitor clinically. Coronary artery disease -Restart home medication. He ready had his medication this morning. DVT prophylaxis -Heparin. Discussed Condition With patient Payal Bautista MD Aug 27, 2017 14:11
[2017-08-27 14:34] VITALS: BP 169/77; PULSE 67; RESP 19; TEMP 98; O2SAT 97
--- NOTE | 2017-08-27 15:06 | RADRPT ---
EXAM DATE/TIME: 08/27/2017 14:41 [facility] COMPARISON: No previous studies available for comparison. INDICATIONS : No known injury. Pain and swelling since this morning. MEDICAL HISTORY : Hypertension. Hypothyroidism. SURGICAL HISTORY : Total knee replacement, left. Total knee replacement, right. Bilateral hip replacements. ENCOUNTER: Subsequent ACUITY: 1 week PAIN SCORE: 7/10 LOCATION: Left Elbow FINDINGS: Degenerative changes about the elbow. Anatomic alignment. No fractures. CONCLUSION: Soft tissue swelling without fracture. Gus Solomon MD FACR on August 27, 2017 at 15:03 Board Certified Radiologist. This report was verified electronically.
[2017-08-27] MEDS: CEPHALEXIN MONOHYDRATE 500 MG CAP PO SCH ×2 (15:19→21:32)
[2017-08-27 16:07] VITALS: PULSE 63
[2017-08-27 16:20] LABS: TROPONIN I 0.03 NG/ML (0.02-0.05)
[2017-08-27 17:51] LABS: BILIRUBIN, URINE NEG (NEG); BLOOD, URINE NEG (NEG); GLUCOSE,URINE NEG (NEG); HYALINE CAST, URINE 4 /lpf (RARE); KETONE, URINE NEG (NEG); MUCUS URINE FEW /lpf (OCC); NITRITE,URINE NEG (NEG); PH, URINE 6.5 (5.0-8.5); SQUAMOUS EPITHELIAL CELL URINE 1 /hpf (0-5); URINE COLOR YELLOW (YELLW/STRAW); URINE LEUKOCYTE ESTERASE NEG (NEG)
[2017-08-27 17:52] VITALS: BP 180/79; PULSE 65; RESP 18; TEMP 97.7; O2SAT 98
[2017-08-27] MEDS ORDERED: ENALAPRILAT 2.5 MG/2 ML VIAL IV PUSH PRN (18:15)
[2017-08-27 18:47] LABS: C-REACTIVE PROTEIN 9.6 MG/DL (0.00-0.30)
[2017-08-27 18:50] LABS: TROPONIN I 0.03 NG/ML (0.02-0.05)
[2017-08-27 20:10] VITALS: PULSE 74
[2017-08-27] MEDS ORDERED: SODIUM CHLORIDE 0.9% FLUSH 10 ML FLUSH IV FLUSH SCH (21:00)
[2017-08-27 21:23] VITALS: BP 172/80; PULSE 84; RESP 17; TEMP 97.5; O2SAT 96
[2017-08-27] MEDS: RANOLAZINE 500 MG EXTENDED RELEASE TAB PO SCH (21:32)
[2017-08-27] MEDS: ATORVASTATIN 80 MG TAB PO SCH (21:32)
[2017-08-27] MEDS: SODIUM CHLORIDE 0.9% FLUSH 10 ML FLUSH IV FLUSH SCH (21:32)
[2017-08-27] MEDS: HEPARIN SODIUM - SQ 10,000 UNITS/ML VIAL SQ SCH (21:32)
[2017-08-28] VITALS (13 sets, daily range): BP systolic 121–162; BP diastolic 60–78; PULSE 61–88; RESP 16–20; TEMP 98.1–99.7; O2SAT 93–98
[2017-08-28 01:30] LABS: TROPONIN I 0.03 NG/ML (0.02-0.05)
[2017-08-28] MEDS: CEPHALEXIN MONOHYDRATE 500 MG CAP PO SCH ×3 (06:26→22:46)
[2017-08-28] MEDS: LEVOTHYROXINE SODIUM 25 MCG TAB PO SCH (06:26)
[2017-08-28] MEDS ORDERED: VANCOMYCIN INJ 1,000 MG in SODIUM CHLOR 0.9% 250 ML INJ 250 ML IV SCH (09:30)
[2017-08-28] MEDS ORDERED: Vancomycin Consult Pharmacy 1 EA OTHER SCH (09:30)
[2017-08-28] MEDS: HEPARIN SODIUM - SQ 10,000 UNITS/ML VIAL SQ SCH ×2 (09:43→22:47)
[2017-08-28] MEDS: SODIUM CHLORIDE 0.9% FLUSH 10 ML FLUSH IV FLUSH SCH ×2 (09:43→22:47)
[2017-08-28] MEDS: CYANOCOBALAMIN 1,000 MCG TAB PO SCH (09:43)
[2017-08-28] MEDS: THIAMINE HCL 100 MG TAB PO SCH (09:43)
[2017-08-28] MEDS: RANOLAZINE 500 MG EXTENDED RELEASE TAB PO SCH ×2 (09:44→22:46)
[2017-08-28] MEDS: CLOPIDOGREL 75 MG TAB PO SCH (09:44)
[2017-08-28] MEDS: ASPIRIN 81 MG CHEW TAB CHEW SCH (09:44)
--- NOTE | 2017-08-28 09:51 | HHI.PR ---
Subjective Remarks Follow-up for chest pain, left shoulder and elbow pain Patient denying chest pain. Complaining more of the elbow pain. No fevers overnight. Objective Vitals Vital Signs Date Time Temp Pulse Resp B/P (MAP) Pulse Ox O2 Delivery O2 Flow Rate FiO2 08/28/17 04:00 77 08/28/17 03:40 98.9 78 17 131/61 (84) 93 08/28/17 00:50 98.8 85 17 136/66 (89) 95 08/28/17 00:00 81 08/27/17 21:23 97.5 84 17 172/80 (110) 96 08/27/17 20:10 74 08/27/17 17:52 97.7 65 18 180/79 (112) 98 08/27/17 16:07 63 08/27/17 14:34 98.0 67 19 169/77 (107) 97 08/27/17 11:13 58 20 97 08/27/17 11:07 98.1 60 23 131/65 (87) 97 I/O 08/27/17 08/27/17 08/27/17 08/28/17 08/28/17 08/28/17 07:00 15:00 23:00 07:00 15:00 23:00 Intake Total 500 ml Balance 500 ml Intake IV Total 500 ml # Voids 1 Result Diagram: 08/27/17 1150 08/27/17 1150 Objective Remarks GENERAL: This is a well-nourished, well-developed patient, in no apparent distress. SKIN: Patient's skin is very thin and bilateral arm are edematous with ecchymosis on bilateral medial portion of the forearm. There is some questionable erythema on the left medial portion of the forearm. Erythema seemed to worsen today. CARDIOVASCULAR: Regular rate and rhythm without murmurs, gallops, or rubs. RESPIRATORY: Clear to auscultation. Breath sounds equal bilaterally. No wheezes , rales, or rhonchi. GASTROINTESTINAL: Abdomen soft, non-tender, nondistended. No hepato-splenomegaly , or palpable masses. No guarding. MUSCULOSKELETAL: Continues to have pain but right range of motion of the left elbow. Medications and IVs Current Medications Aspirin (Aspirin Chew) 81 mg ONCE ONCE PO Last administered on 08/27/17at 11:54 ; Start 08/27/17 at 11:30; Stop 08/27/17 at 11:31; Status DC Sodium Chloride 500 ml @ 500 mls/hr ONCE ONCE IV Last administered on at 11:53; Start 08/27/17 at 11:30; Stop 08/27/17 at 12:29; Status DC Sodium Chloride (NS Flush) 2 ml UNSCH PRN IV FLUSH FLUSH AFTER USING IV ACCESS ; Start 08/27/17 at 13:00 Sodium Chloride (NS Flush) 2 ml BID IV FLUSH Last administered on 08/28/17at 09: 43; Start 08/27/17 at 21:00 Sodium Chloride (NS Flush) 2 ml UNSCH PRN IV FLUSH FLUSH AFTER USING IV ACCESS ; Start 08/27/17 at 14:00; Stop 08/27/17 at 14:00; Status DC Sodium Chloride (NS Flush) 2 ml BID IV FLUSH ; Start 08/27/17 at 21:00; Stop 08/27 at 21:00; Status DC Acetaminophen (Tylenol) 650 mg Q4H PRN PO TEMP > 100.4 or pain 1-10; Start 08/27 at 14:00 Ondansetron HCl (Zofran Inj) 4 mg Q6H PRN IVP NAUSEA OR VOMITING; Start at 14:00 Naloxone HCl (Narcan Inj) 0.4 mg UNSCH PRN IV PUSH SEE LABEL COMMENTS; Start at 14:00 Magnesium Hydroxide (Milk Of Magnesia Liq) 30 ml Q12H PRN PO Mild constipation ; Start 08/27/17 at 14:00 Aspirin (Aspirin Chew) 81 mg DAILY CHEW Last administered on 08/28/17at 09:44; Start 08/28/17 at 09:00 Atorvastatin Calcium (Lipitor) 80 mg HS PO Last administered on 08/27/17at 21:32 ; Start 08/27/17 at 21:00 Clopidogrel Bisulfate (Plavix) 75 mg DAILY PO Last administered on 08/28/17at 09: 44; Start 08/28/17 at 09:00 Cyanocobalamin (Vitamin B12) 1,000 mcg DAILY PO Last administered on 08/28/17at 09:43; Start 08/28/17 at 09:00 Levothyroxine Sodium (Synthroid) 25 mcg DAILY@0600 PO Last administered on 06:26; Start 08/28/17 at 06:00 Ranolazine (Ranexa) 500 mg BID PO Last administered on 08/28/17at 09:44; Start at 21:00 Thiamine HCl (Vitamin B1) 100 mg DAILY PO Last administered on 08/28/17at 09:43; Start 08/28/17 at 09:00 Cephalexin Monohydrate (Keflex) 500 mg Q8HR PO Last administered on 08/28/17at 06 :26; Start 08/27/17 at 14:30 Heparin Sodium (Porcine) (Heparin Inj) 5,000 units Q12HR SQ Last administered on 08/28/17 09:43; Start 08/27/17 at 21:00 Enalaprilat (Vasotec Inj) 2.5 mg Q6H PRN IV PUSH SBP>160 or DBP>100 Last administered on 08/27/17at 18:14; Start 08/27/17 at 18:15 Vancomycin HCl 1000 mg/Sodium Chloride 250 ml @ 250 mls/hr Q12H IV ; Start 08/28 at 09:30; Status UNV Pharmacy Profile Note 0 ml @ 0 mls/hr UNSCH OTHER ; Start 08/28/17 at 09:30; Status UNV A/P Assessment and Plan 87-year-old male history of coronary artery disease status post stent placement , hypertension, osteoarthritis who presented with chest pain, left shoulder and elbow pain Chest pain -Patient chest pain sounds atypical and he seems to be more concerned about his left shoulder and elbow pain. -First set cardiac enzymes negative and EKG showed stable from previous EKG. Echo from 08/22/17 EF 60%, mild aortic stenosis. -Cardiac enzymes are negative. Pending nuclear stress test. Continue with home medication. Left shoulder/elbow pain -Pain is actually more in the elbow. Most likely secondary to osteoarthritis. Unsure if patient had any trauma to the area. X-ray negative for any fracture. Shows some edema and subcutaneous tissue. Questionable left forearm cellulitis -Patient does not have any fevers or white count. He does have some erythema in the area that have worsened since his hospitalization. Sed rate and CRP are elevated. Edema noted on x-ray. He was treated empirically with Keflex. We will add vancomycin. Continue to monitor clinically. Coronary artery disease -continue medication. He ready had his medication this morning. DVT prophylaxis -Heparin. Discharge Planning Cellulitis worsening will require IV antibiotics. Payal Bautista MD Aug 28, 2017 09:51
[2017-08-28] MEDS ORDERED: REGADENOSON INJ 0.4 MG/5 ML SYR ONE (11:18)
[2017-08-28] MEDS ORDERED: VANCOMYCIN 1 GM/200 ML PREMIX IV SCH (12:00)
--- NOTE | 2017-08-28 12:47 | RADRPT ---
EXAM DATE/TIME: 08/28/2017 10:59 [facility] COMPARISON: No previous studies available for comparison. INDICATIONS : Chest pain radiating to left arm. Angina. Coronary artery disease. DOSE: 25.3 mCi Tc99m Myoview at stress. 8.5 mCi Tc99m Myoview at rest. 0.4 mg Lexiscan STRESS SYMPTOMS: Chest pain and dyspnea. EJECTION FRACTION: 55% MEDICAL HISTORY : Hypertension. Chronic obstructive pulmonary disease. Carcinoma, basal cell. SURGICAL HISTORY : Coronary artery stent. Hip and knee surgery. ENCOUNTER: Initial ACUITY: 1 day PAIN SCALE: 4/10 LOCATION: Bilateral chest TECHNIQUE: The patient underwent pharmacologic stress with infusion of prescribed dose. Continuous ECG tracing was monitored during stress. Gated SPECT imaging was performed after stress and conventional SPECT i maging was performed at rest. The examination was performed on a SPECT/CT scanner, both attenuation and non-corrected datasets were reviewed. FINDINGS: DISTRIBUTION: The maximum perfused segment at stress is in the septal wall. PERFUSION STUDY: The pattern of perfusion at stress is within normal limits. GATED STUDY: There is intact wall motion and thickening without hypokinetic or dyskinetic segments. CONCLUSION: Normal examination. RISK CATEGORY: Low (<1% Annual Mortality Rate) David Jha MD on August 28, 2017 at 12:42 Board Certified Radiologist. This report was verified electronically.
[2017-08-28] MEDS: VANCOMYCIN 1 GM/200 ML PREMIX IV SCH (13:08)
[2017-08-28] MEDS: SODIUM CHLORIDE 0.9% FLUSH 10 ML FLUSH IV FLUSH PRN (13:08)
--- NOTE | 2017-08-28 20:26 | EKG ---
Date Performed: 08/27/2017 Time Performed: 11:02:55 PTAGE: 87 years EKG: Sinus rhythm LEFT BUNDLE BRANCH BLOCK ABNORMAL ECG INTERPRETATION BASED ON A DEFAULT AGE OF 40 YEARS Since the pr ior tracing, there has been no significant change PREVIOUS TRACING : 08/20/2017 18.17 DOCTOR: Ben Barnhart Interpretating Date/Time 08/28/2017 20:20:40
--- NOTE | 2017-08-28 20:26 | EKG ---
Date Performed: 08/27/2017 Time Performed: 15:49:11 PTAGE: 87 years EKG: Sinus rhythm LEFT BUNDLE BRANCH BLOCK ABNORMAL ECG Since the prior tracing, there has been no significant change PREVIOUS TRACING : 08/27/2017 11.02 DOCTOR: Ben Barnhart Interpretating Date/Time 08/28/2017 20:20:52
--- NOTE | 2017-08-28 20:27 | EKG ---
Date Performed: 08/27/2017 Time Performed: 17:47:29 PTAGE: 87 years EKG: Sinus rhythm LEFT BUNDLE BRANCH BLOCK ABNORMAL ECG Since the prior tracing, there has been no significant change PREVIOUS TRACING : 08/27/2017 15.49 DOCTOR: Ben Barnhart Interpretating Date/Time 08/28/2017 20:21:02
--- NOTE | 2017-08-28 20:27 | EKG ---
Date Performed: 08/28/2017 Time Performed: 04:12:20 PTAGE: 87 years EKG: Sinus rhythm LEFT BUNDLE BRANCH BLOCK ABNORMAL ECG Since the prior tracing, there has been no significant change PREVIOUS TRACING : 08/27/2017 17.47 DOCTOR: Ben Barnhart Interpretating Date/Time 08/28/2017 20:21:11
[2017-08-28] MEDS: ATORVASTATIN 80 MG TAB PO SCH (22:46)
[2017-08-29] VITALS (7 sets, daily range): BP systolic 126–143; BP diastolic 60–65; PULSE 58–82; RESP 18–20; TEMP 97.9–98.5; O2SAT 95–97
[2017-08-29] MEDS: LEVOTHYROXINE SODIUM 25 MCG TAB PO SCH (06:13)
[2017-08-29] MEDS: CEPHALEXIN MONOHYDRATE 500 MG CAP PO SCH ×2 (06:13→13:54)
[2017-08-29] MEDS: RANOLAZINE 500 MG EXTENDED RELEASE TAB PO SCH (09:48)
[2017-08-29] MEDS: CYANOCOBALAMIN 1,000 MCG TAB PO SCH (09:48)
[2017-08-29] MEDS: CLOPIDOGREL 75 MG TAB PO SCH (09:49)
[2017-08-29] MEDS: THIAMINE HCL 100 MG TAB PO SCH (09:49)
[2017-08-29] MEDS: HEPARIN SODIUM - SQ 10,000 UNITS/ML VIAL SQ SCH (09:49)
[2017-08-29] MEDS: SODIUM CHLORIDE 0.9% FLUSH 10 ML FLUSH IV FLUSH SCH (09:49)
[2017-08-29] MEDS: ASPIRIN 81 MG CHEW TAB CHEW SCH (09:49)
[2017-08-29] MEDS: VANCOMYCIN 1 GM/200 ML PREMIX IV SCH (12:50)
[2017-08-29] MEDS: SODIUM CHLORIDE 0.9% FLUSH 10 ML FLUSH IV FLUSH PRN (12:51)
--- NOTE | 2017-08-29 13:55 | HHI.PR ---
Subjective Remarks This is a 87-year-old male past medical history of coronary artery disease status post stent placement, hypertension, and osteoarthritis who presented with chest pain radiating to left shoulder and elbow. Patient stated that chest pain started yesterday he is unsure what time and what he was doing when the chest pain occurred. Patient stated chest pain is mild and pain is mostly in his left shoulder and arm. He stated that pain was constant throughout most of the day yesterday and resolved on its own. He denies any chest pain at the moment. He stated that his pain is mostly in the left shoulder and arm. Denies any traumas or falls. Denies any shortness of breathing, lightheadedness /dizziness, or palpitations. He denies any nausea, vomiting, or diaphoresis with this episode. Patient stated that he resides in a residential and that he is able to walk with a walker but he stated that it has been difficult. All other review of system reviewed and negative. 2-8 Follow-up for chest pain, left shoulder and elbow pain Patient denying chest pain. Complaining more of the elbow pain. No fevers overnight. 2-9 wants to go back to [facility] SON STRESS TEST IS NEGATIVE NO MORE CHEST PAIN NEEDS PT AND OT AT [facility] DC TO [facility] TODAY CONTINUE ON ZYVOX BID AND KEFLEX DW RN AND PATIENT Discussed with patient and son discharge back to [facility] [place] Objective Vitals Vital Signs Date Time Temp Pulse Resp B/P (MAP) Pulse Ox O2 Delivery O2 Flow Rate FiO2 08/29/17 08:25 98.5 79 20 126/60 (82) 97 08/29/17 04:00 69 08/29/17 03:27 97.9 70 18 143/65 (91) 96 08/29/17 00:42 82 08/28/17 23:26 99.7 75 17 131/78 (95) 97 08/28/17 20:29 61 08/28/17 20:11 98.9 76 16 162/76 (104) 98 08/28/17 17:11 99.1 87 20 141/68 (92) 95 08/28/17 16:05 88 08/28/17 13:45 75 I/O 08/28/17 08/28/17 08/28/17 08/29/17 08/29/17 08/29/17 07:00 15:00 23:00 07:00 15:00 23:00 Intake Total 200 ml 240 ml Balance 200 ml 240 ml Intake Oral 240 ml IV Total 200 ml # Voids 2 # Bowel Movements 1 Result Diagram: 08/27/17 1150 08/27/17 1150 Other Results Laboratory Tests Test 08/27/17 11:50 08/27/17 15:17 08/27/17 17:23 08/27/17 17:44 White Blood Count 9.9 TH/MM3 Red Blood Count 3.69 MIL/MM3 Hemoglobin 11.9 GM/DL Hematocrit 33.8 % Mean Corpuscular Volume 91.5 FL Mean Corpuscular Hemoglobin 32.2 PG Mean Corpuscular Hemoglobin Concent 35.2 % Red Cell Distribution Width 13.2 % Platelet Count 233 TH/MM3 Mean Platelet Volume 7.1 FL Neutrophils (%) (Auto) 80.4 % Lymphocytes (%) (Auto) 6.3 % Monocytes (%) (Auto) 12.7 % Eosinophils (%) (Auto) 0.1 % Basophils (%) (Auto) 0.5 % Neutrophils # (Auto) 7.9 TH/MM3 Lymphocytes # (Auto) 0.6 TH/MM3 Monocytes # (Auto) 1.3 TH/MM3 Eosinophils # (Auto) 0.0 TH/MM3 Basophils # (Auto) 0.1 TH/MM3 CBC Comment DIFF FINAL Differential Comment Prothrombin Time 11.8 SEC Prothromb Time International Ratio 1.2 RATIO Activated Partial Thromboplast Time 30.9 SEC Blood Urea Nitrogen 26 MG/DL Creatinine 1.16 MG/DL Random Glucose 102 MG/DL Total Protein 6.4 GM/DL Albumin 3.0 GM/DL Calcium Level 9.1 MG/DL Alkaline Phosphatase 90 U/L Aspartate Amino Transf (AST/SGOT) 25 U/L Alanine Aminotransferase (ALT/SGPT) 26 U/L Total Bilirubin 0.8 MG/DL Sodium Level 135 MEQ/L Potassium Level 3.9 MEQ/L Chloride Level 101 MEQ/L Carbon Dioxide Level 26.8 MEQ/L Anion Gap 7 MEQ/L Estimat Glomerular Filtration Rate 59 ML/MIN Troponin I 0.03 NG/ML 0.03 NG/ML 0.03 NG/ML B-Type Natriuretic Peptide 441 PG/ML Total Creatine Kinase 70 U/L 87 U/L Urine Color YELLOW Urine Turbidity CLEAR Urine pH 6.5 Urine Specific Lutz 1.019 Urine Protein 30 mg/dL Urine Glucose (UA) NEG mg/dL Urine Ketones NEG mg/dL Urine Occult Blood NEG Urine Nitrite NEG Urine Bilirubin NEG Urine Urobilinogen 2.0 MG/DL Urine Leukocyte Esterase NEG Urine RBC 1 /hpf Urine WBC 1 /hpf Urine Squamous Epithelial Cells 1 /hpf Urine Hyaline Casts 4 /lpf Urine Mucus FEW /lpf Microscopic Urinalysis Comment CULT NOT INDICATED C-Reactive Protein 9.60 MG/DL Test 08/28/17 00:42 Erythrocyte Sedimentation Rate 47 mm/hr Total Creatine Kinase 67 U/L Troponin I 0.03 NG/ML Imaging Last Impressions Myocardial Perfusion Scan Nuc Med 08/28/17 0000 Signed Impressions: Service Date/Time: August 10:59 - CONCLUSION: Normal examination. RISK CATEGORY: Low (<1%% Annual Mortality Rate) David Jha MD Chest X-Ray 08/27/17 1129 Signed Impressions: Service Date/Time: Sunday, August 27, 2017 11:39 - CONCLUSION: No infiltrates seen. Andrea Ward MD Elbow X-Ray 08/27/17 0000 Signed Impressions: Service Date/Time: Sunday, August 27, 2017 14:41 - CONCLUSION: Soft tissue swelling without fracture. Gus Solomon MD FACR Objective Remarks GENERAL: Oriented talkative and cooperative in no acute distress still has some swelling and erythema of the left arm right forearm is dressed SKIN: Warm and dry. Left upper extremity cellulitis of the forearm and wrist area HEAD: Atraumatic. Normocephalic. EYES: Pupils equal and round. No scleral icterus. No injection or drainage. Extraocular muscles intact ENT: No nasal bleeding or discharge. Mucous membranes pink and moist. Tongue is midline NECK: Trachea midline. No JVD. Supple CARDIOVASCULAR: Regular rate and rhythm. S1 and S2 no S3 or S4 RESPIRATORY: No accessory muscle use. Clear to auscultation. Breath sounds equal bilaterally. GASTROINTESTINAL: Abdomen soft, non-tender, nondistended. Hepatic and splenic margins not palpable. MUSCULOSKELETAL: Extremities without clubbing, cyanosis, or edema. No obvious deformities. Left upper extremity cellulitis improved less erythematous tenderness and swelling NEUROLOGICAL: Awake and alert. No obvious cranial nerve deficits. Motor grossly within normal limits. Five out of 5 muscle strength in the arms and legs. Normal speech. PSYCHIATRIC: Appropriate mood and affect; insight and judgment normal. Procedures NONE Medications and IVs Current Medications Aspirin (Aspirin Chew) 81 mg ONCE ONCE PO Last administered on 08/27/17 11:54 ; Start 08/27/17 at 11:30; Stop 08/27/17 at 11:31; Status DC Sodium Chloride 500 ml @ 500 mls/hr ONCE ONCE IV Last administered on 11:53; Start 08/27/17 at 11:30; Stop 08/27/17 at 12:29; Status DC Sodium Chloride (NS Flush) 2 ml UNSCH PRN IV FLUSH FLUSH AFTER USING IV ACCESS Last administered on 08/29/17 12:51; Start 08/27/17 at 13:00 Sodium Chloride (NS Flush) 2 ml BID IV FLUSH Last administered on 08/29/17 09: 49; Start 08/27/17 at 21:00 Sodium Chloride (NS Flush) 2 ml UNSCH PRN IV FLUSH FLUSH AFTER USING IV ACCESS ; Start 08/27/17 at 14:00; Stop 08/27/17 at 14:00; Status DC Sodium Chloride (NS Flush) 2 ml BID IV FLUSH ; Start 08/27/17 at 21:00; Stop 08/27 at 21:00; Status DC Acetaminophen (Tylenol) 650 mg Q4H PRN PO TEMP > 100.4 or pain 1-10 Last administered on 08/29/17at 09:58; Start 08/27/17 at 14:00 Ondansetron HCl (Zofran Inj) 4 mg Q6H PRN IVP NAUSEA OR VOMITING; Start at 14:00 Naloxone HCl (Narcan Inj) 0.4 mg UNSCH PRN IV PUSH SEE LABEL COMMENTS; Start at 14:00 Magnesium Hydroxide (Milk Of Magnesia Liq) 30 ml Q12H PRN PO Mild constipation Last administered on 08/29/17 06:13; Start 08/27/17 at 14:00 Aspirin (Aspirin Chew) 81 mg DAILY CHEW Last administered on 08/29/17 09:49; Start 08/28/17 at 09:00 Atorvastatin Calcium (Lipitor) 80 mg HS PO Last administered on 2/8/18at 22:46 ; Start 08/27/17 at 21:00 Clopidogrel Bisulfate (Plavix) 75 mg DAILY PO Last administered on 08/29/17 09: 49; Start 08/28/17 at 09:00 Cyanocobalamin (Vitamin B12) 1,000 mcg DAILY PO Last administered on 08/29/17 09:48; Start 08/28/17 at 09:00 Levothyroxine Sodium (Synthroid) 25 mcg DAILY@0600 PO Last administered on 06:13; Start 08/28/17 at 06:00 Ranolazine (Ranexa) 500 mg BID PO Last administered on 08/29/17 09:48; Start at 21:00 Thiamine HCl (Vitamin B1) 100 mg DAILY PO Last administered on 08/29/17 09:49; Start 08/28/17 at 09:00 Cephalexin Monohydrate (Keflex) 500 mg Q8HR PO Last administered on 08/29/17 06 :13; Start 08/27/17 at 14:30 Heparin Sodium (Porcine) (Heparin Inj) 5,000 units Q12HR SQ Last administered on 08/29/17 09:49; Start 08/27/17 at 21:00 Enalaprilat (Vasotec Inj) 2.5 mg Q6H PRN IV PUSH SBP>160 or DBP>100 Last administered on 08/27/17at 18:14; Start 08/27/17 at 18:15 Vancomycin HCl 1000 mg/Sodium Chloride 250 ml @ 250 mls/hr Q12H IV ; Start 08/28 at 09:30; Status Cancel Pharmacy Profile Note 0 ml @ 0 mls/hr UNSCH OTHER ; Start 08/28/17 at 09:30 Vancomycin/Sodium Chloride 200 ml @ 200 mls/hr Q12H IV ; Start 08/28/17 at 12:00 ; Stop 08/28/17 at 12:00; Status DC Vancomycin/Sodium Chloride 200 ml @ 200 mls/hr Q24H IV Last administered on 08/29/17at 12:50; Start 08/28/17 at 12:00 Miscellaneous Information SPECIFIC LAB TO BE DRAWN: VANCO TROUGH DATE TO... ONCE ONCE .XX ; Start 08/30/17 at 11:45; Stop 08/30/17 at 11:46 Regadenoson (Lexiscan Inj) 0.4 mg STK-MED ONCE .ROUTE ; Start 08/28/17 at 11:18; Stop 08/28/17 at 11:19; Status DC A/P Assessment and Plan 87-year-old male history of coronary artery disease status post stent placement , hypertension, osteoarthritis who presented with chest pain, left shoulder and elbow pain Chest pain -Patient chest pain sounds atypical and he seems to be more concerned about his left shoulder and elbow pain. -First set cardiac enzymes negative and EKG showed stable from previous EKG. Echo from 08/22/17 EF 60%, mild aortic stenosis. -Cardiac enzymes are negative. Negative nuclear stress test. Continue with home medication. Left shoulder/elbow pain -Pain is actually more in the elbow. Most likely secondary to osteoarthritis. Unsure if patient had any trauma to the area. X-ray negative for any fracture. Shows some edema and subcutaneous tissue. Questionable left forearm cellulitis -Patient does not have any fevers or white count. He does have some erythema in the area that have worsened since his hospitalization. Sed rate and CRP are elevated. Edema noted on x-ray. He was treated empirically with Keflex. We will add vancomycin. Continue to monitor clinically. Switched to Zyvox and Keflex and discharged to SNF Coronary artery disease -continue medication. He ready had his medication this morning. DVT prophylaxis -Heparin. Is stabilized and can be discharged back to [facility] Discharge Planning Discussed with patient and son discharged and Gus Bauman DO Aug 29, 2017 13:55
[2017-08-29] MEDS ORDERED: CEPH500C PO (13:57)
[2017-08-29] MEDS ORDERED: ZYVO600T PO (13:58)
--- NOTE | 2017-08-29 14:04 | HHI.DS ---
Discharge Summary Admission Date Aug 27, 2017 at 12:58 Discharge Date: Aug 29, 2017 Admitting Diagnosis angina, atypical chest pain (1) Skin tear of elbow without complication ICD Code: S51.019A - Laceration without foreign body of unspecified elbow, initial encounter Diagnosis: Secondary Status: Acute (2) Chest pain ICD Code: R07.9 - Chest pain, unspecified Diagnosis: Secondary Status: Acute (3) Unstable angina ICD Code: I20.0 - Unstable angina Diagnosis: Secondary Status: Acute (4) Orthostatic hypotension ICD Code: I95.1 - Orthostatic hypotension Diagnosis: Principal (5) Syncope ICD Code: R55 - Syncope and collapse Diagnosis: Principal (6) Lightheadedness ICD Code: R42 - Dizziness and giddiness Diagnosis: Principal Procedures NONE Brief History - From Admission This is a 87-year-old male past medical history of coronary artery disease status post stent placement, hypertension, and osteoarthritis who presented with chest pain radiating to left shoulder and elbow. Patient stated that chest pain started yesterday he is unsure what time and what he was doing when the chest pain occurred. Patient stated chest pain is mild and pain is mostly in his left shoulder and arm. He stated that pain was constant throughout most of the day yesterday and resolved on its own. He denies any chest pain at the moment. He stated that his pain is mostly in the left shoulder and arm. Denies any traumas or falls. Denies any shortness of breathing, lightheadedness /dizziness, or palpitations. He denies any nausea, vomiting, or diaphoresis with this episode. Patient stated that he resides in a detention and that he is able to walk with a walker but he stated that it has been difficult. All other review of system reviewed and negative. CBC/BMP: 08/27/17 1150 08/27/17 1150 Significant Findings Laboratory Tests Test 08/27/17 11:50 08/27/17 15:17 08/27/17 17:23 08/27/17 17:44 Red Blood Count 3.69 MIL/MM3 (4.50-5.90) Hemoglobin 11.9 GM/DL (13.0-17.0) Hematocrit 33.8 % (39.0-51.0) Neutrophils (%) (Auto) 80.4 % (16.0-70.0) Lymphocytes (%) (Auto) 6.3 % (9.0-44.0) Monocytes (%) (Auto) 12.7 % (0.0-8.0) Neutrophils # (Auto) 7.9 TH/MM3 (1.8-7.7) Lymphocytes # (Auto) 0.6 TH/MM3 (1.0-4.8) Monocytes # (Auto) 1.3 TH/MM3 (0-0.9) Prothrombin Time 11.8 SEC (9.8-11.6) Activated Partial Thromboplast Time 30.9 SEC (24.3-30.1) Blood Urea Nitrogen 26 MG/DL (7-18) Albumin 3.0 GM/DL (3.4-5.0) Sodium Level 135 MEQ/L (136-145) Estimat Glomerular Filtration Rate 59 ML/MIN (>89) B-Type Natriuretic Peptide 441 PG/ML (0-100) Urine Protein 30 mg/dL (NEG-TRACE) Urine Mucus FEW /lpf (OCC) C-Reactive Protein 9.60 MG/DL (0.00-0.30) Test 08/28/17 00:42 Erythrocyte Sedimentation Rate 47 mm/hr (0-20) Imaging Last Impressions Myocardial Perfusion Scan Nuc Med 08/28/17 0000 Signed Impressions: Service Date/Time: August 10:59 - CONCLUSION: Normal examination. RISK CATEGORY: Low (<1%% Annual Mortality Rate) David Jha MD Chest X-Ray 08/27/17 1129 Signed Impressions: Service Date/Time: Sunday, August 27, 2017 11:39 - CONCLUSION: No infiltrates seen. Andrea Ward MD Elbow X-Ray 08/27/17 0000 Signed Impressions: Service Date/Time: Sunday, August 27, 2017 14:41 - CONCLUSION: Soft tissue swelling without fracture. Gus Solomon MD FACR PE at Discharge GENERAL: Oriented talkative and cooperative in no acute distress still has some swelling and erythema of the left arm right forearm is dressed SKIN: Warm and dry. Left upper extremity cellulitis of the forearm and wrist area HEAD: Atraumatic. Normocephalic. EYES: Pupils equal and round. No scleral icterus. No injection or drainage. Extraocular muscles intact ENT: No nasal bleeding or discharge. Mucous membranes pink and moist. Tongue is midline NECK: Trachea midline. No JVD. Supple CARDIOVASCULAR: Regular rate and rhythm. S1 and S2 no S3 or S4 RESPIRATORY: No accessory muscle use. Clear to auscultation. Breath sounds equal bilaterally. GASTROINTESTINAL: Abdomen soft, non-tender, nondistended. Hepatic and splenic margins not palpable. MUSCULOSKELETAL: Extremities without clubbing, cyanosis, or edema. No obvious deformities. Left upper extremity cellulitis improved less erythematous tenderness and swelling NEUROLOGICAL: Awake and alert. No obvious cranial nerve deficits. Motor grossly within normal limits. Five out of 5 muscle strength in the arms and legs. Normal speech. PSYCHIATRIC: Appropriate mood and affect; insight and judgment normal. Hospital Course This is a 87-year-old male past medical history of coronary artery disease status post stent placement, hypertension, and osteoarthritis who presented with chest pain radiating to left shoulder and elbow. Patient stated that chest pain started yesterday he is unsure what time and what he was doing when the chest pain occurred. Patient stated chest pain is mild and pain is mostly in his left shoulder and arm. He stated that pain was constant throughout most of the day yesterday and resolved on its own. He denies any chest pain at the moment. He stated that his pain is mostly in the left shoulder and arm. Denies any traumas or falls. Denies any shortness of breathing, lightheadedness /dizziness, or palpitations. He denies any nausea, vomiting, or diaphoresis with this episode. Patient stated that he resides in a detention and that he is able to walk with a walker but he stated that it has been difficult. All other review of system reviewed and negative. 2-8 Follow-up for chest pain, left shoulder and elbow pain Patient denying chest pain. Complaining more of the elbow pain. No fevers overnight. 2-9 wants to go back to [facility] SON STRESS TEST IS NEGATIVE NO MORE CHEST PAIN NEEDS PT AND OT AT SNF DC TO SNF TODAY CONTINUE ON ZYVOX BID AND KEFLEX DW RN AND PATIENT Discussed with patient and son discharge back to [facility] Condition on Discharge: Good Discharge Disposition: Discharge to SNF Discharge Time: <= 30 minutes Discharge Instructions DIET: Follow Instructions for: Heart Healthy Diet Speech Therapy-Diet Recommends: Regular Activities you can perform: Regular-No Restrictions, Weight Bearing as Tree Other Activity Instructions: Continue to keep wound clean and dry and dressed Follow up Referrals: PCP Follow-up - 2 Days New Medications: Linezolid (Zyvox) 600 Mg Tab 600 MG PO Q12H for Infection for 10 Days, #20 TAB 0 Refills Cephalexin (Cephalexin) 500 Mg Cap 500 MG PO Q8HR for Infection, #30 CAP Continued Medications: Aspirin (Aspirin) 81 Mg Chew 81 MG CHEW DAILY, TAB 0 Refills Atorvastatin (Atorvastatin) 80 Mg Tab 80 MG PO HS for Cholesterol Management, #30 TAB 0 Refills Clopidogrel (Clopidogrel) 75 Mg Tab 75 MG PO DAILY for Blood Clot Prevention, #30 TAB 0 Refills Cyanocobalamin (Vitamin B-12) 1,000 Mcg Tab 1000 MCG PO DAILY for vitamin for 30 Days, #3 TAB Levothyroxine (Levothyroxine) 25 Mcg Tab 25 MCG PO DAILY for Thyroid, #30 TAB 0 Refills Ranolazine ER 12 HR (Ranexa ER 12 HR) 500 Mg Tab 500 MG PO BID for Chest Pain, #60 TAB 0 Refills Thiamine HCl (Gnp Vitamin B-1) 100 Mg Tab 100 MG PO DAILY for vitamin for 30 Days, #30 TAB Gus Colon DO Aug 29, 2017 14:04
[2017-08-30] MEDS ORDERED: PHARMACY ORDERED LAB ONE (11:45)
== END 2017-08-29 16:36 | disposition home or self-care (01) ==
LOC: NEPC 10:46 → NEDA 12:58 → NEPGCP 13:47
PROVIDERS: ADMIT Hospitalist; ATTEND Hospitalist
DX: R07.89 Other chest pain (principal); I35.0 Nonrheumatic aortic (valve) stenosis; M79.602 Pain in left arm; R60.0 Localized edema; S51.011A Laceration without foreign body of right elbow, initial encounter; R53.1 Weakness; L03.114 Cellulitis of left upper limb; I95.1 Orthostatic hypotension; R55 Syncope and collapse; R42 Dizziness and giddiness; I44.7 Left bundle-branch block, unspecified; R94.31 Abnormal electrocardiogram [ECG] [EKG]; I25.110 Atherosclerotic heart disease of native coronary artery with unstable angina pectoris; I10 Essential (primary) hypertension; E78.00 Pure hypercholesterolemia, unspecified; J44.9 Chronic obstructive pulmonary disease, unspecified; E03.9 Hypothyroidism, unspecified; M19.90 Unspecified osteoarthritis, unspecified site; N40.0 Benign prostatic hyperplasia without lower urinary tract symptoms; Z79.899 Other long term (current) drug therapy; Z79.82 Long term (current) use of aspirin; Z96.643 Presence of artificial hip joint, bilateral; Z95.5 Presence of coronary angioplasty implant and graft; Z96.653 Presence of artificial knee joint, bilateral; Z85.828 Personal history of other malignant neoplasm of skin; W19.XXXA Unspecified fall, initial encounter
CPT/HCPCS: 71045; 73080; 78452; 80053; 81001; 82550; 83880; 84484; 85025; 85610; 85652; 85730; 86140; 93005; 93017; 96361; 96365; 96366; 96372; 96375; 97110; 97116; 97162; 97167; 97535; 99285; A9502; G0378; G8987; G8988; J1644; J2785; J3370; J7040